=== PATIENT | male | born 1945 | race Caucasian/White ===

== ENCOUNTER 2018-06-27 09:39 | Emergency (ER) | payer MEDICARE, BC ==
[~2018-06-27] VITALS: Ht 175.3 cm; Wt 160.0 kg
[~2018-06-27 09:39] MED LIST: ACET-1995 PO; ALB0.5UD IH; BUDE10.23 IH; FAMO-128 PO; FOLI1TAB16 PO; FORM12CA IH; GLYB2.5T59 PO; LISI40TA4 PO; MILK200C4 PO; MOME0.246 INH; MULT1TAB PO; OSTEO BI-FLEX1 EACH PO; PRED10TA23 PO; THI100T PO; TIOT18CA7 IH; VERA180T PO
[2018-06-27 10:01] LABS: BASOPHILS # (AUTO) 0.1 X10'3 (0-0.2); BASOPHILS % (AUTO) 1.3 % (0-1); EOSINOPHILS # (AUTO) 0.6 X10'3 (0-0.9); EOSINOPHILS % (AUTO) 7.6 % (0-6); HEMATOCRIT 45.7 % (42.0-52.0); LYMPHOCYTES # (AUTO) 1.9 X10'3 (1.1-4.8); LYMPHOCYTES % (AUTO) 24.6 % (21-51); MEAN CORPUSCULAR HEMOGLOBIN 33.6 PG (27.0-31.0); MEAN CORPUSCULAR HGB CONC 34.9 % (33.0-36.5); MEAN CORPUSCULAR VOLUME 96.1 FL (78-98); MEAN PLATELET VOLUME 9.1 FL (7.4-10.4); MONOCYTES # (AUTO) 0.6 X10'3 (0-0.9); MONOCYTES % (AUTO) 7.9 % (2-12); NEUTROPHILS # (AUTO) 4.6 X10'3 (1.8-7.7); NEUTROPHILS % (AUTO) 58.6 % (42-75); PLATELET COUNT 143 X10'3 (140-440); RED BLOOD COUNT 4.76 X10'6 (4.70-6.10); RED CELL DISTRIBUTION WIDTH 13.6 % (11.5-14.5); WHITE BLOOD COUNT 7.8 X10'3 (4.5-11.0)
[2018-06-27 10:11] LABS: INR 1.1 INR; PARTIAL THROMBOPLASTIN TIME 29 SECONDS (22-32); PROTHROMBIN TIME 11.2 SECONDS (9.0-12.0)
[2018-06-27 10:15] LABS: ALANINE AMINOTRANSFERASE 25 U/L (12-78); ALBUMIN 3.2 G/DL (3.4-5.0); ALBUMIN/GLOBULIN RATIO 0.9 (1.1-1.5); ALKALINE PHOSPHATASE 96 IU/L (46-116); ANION GAP 11 (8-16); ASPARTATE AMINO TRANSFERASE 30 U/L (10-37); BILIRUBIN,TOTAL 1.4 MG/DL (0.1-1.0); BLOOD UREA NITROGEN 8 MG/DL (7-18); CALCIUM 8.8 MG/DL (8.5-10.1); CHLORIDE 107 MMOL/L (99-107); GLUCOSE 98 MG/DL (70-104); POTASSIUM 3.8 MMOL/L (3.5-5.1); SODIUM 142 MMOL/L (135-145); TOTAL CARBON DIOXIDE 24.1 MMOL/L (24-32); TOTAL PROTEIN 6.8 G/DL (6.4-8.2); eGFR > 90 ML/MIN
[2018-06-27] MEDS ORDERED: ipratropium/albuterol 3ml nebule NEB ONE ×2 (10:15→11:35)
[2018-06-27 10:37] LABS: MAGNESIUM 1.6 MG/DL (1.5-2.4)
[2018-06-27 12:53] LABS: CLARITY,URINE CLOUDY (Clear); COLOR,URINE YELLOW (Yellow); GLUCOSE, URINE NEGATIVE (Neg); KETONES,URINE 40 mg/dl (Neg); LEUKOCYTE ESTERASE ,URINE MODERATE (Neg); NITRITES, URINE NEGATIVE (Neg); OCCULT BLOOD,URINE TRACE-INTACT (Neg); PROTEIN,URINE TRACE mg/dl (Neg); UROBILINOGEN,URINE 0.2 E.U/dL (0.2-1.0)
[2018-06-27 12:56] LABS: UA COLLECTION TYPE URINAL
[2018-06-27 13:08] LABS: BACTERIA,URINE FEW /HPF (Neg); MUCUS STRANDS MANY /LPF (Neg); RBC,URINE 0-2 /HPF (0-2); SQUAMOUS EPITHELIAL CELL,UR MANY /LPF (FEW); WBC CLUMPS,URINE FEW /HPF (NEGATIVE); WBC,URINE 20-30 /HPF (0-4)
[2018-06-27] MEDS ORDERED: THI100T PO (13:45)
[2018-06-27] MEDS ORDERED: ALBU18HF2 INH (13:45)
[2018-06-27] MEDS ORDERED: AZIT250T83 PO (13:45)
[2018-06-27] MEDS ORDERED: PRED50TA PO (13:45)
[2018-06-27 13:58] VITALS: BP 168/92
== END 2018-06-27 14:00 | disposition home or self-care (01) ==
LOC: ER 09:39
DX: J44.1 Chronic obstructive pulmonary disease with (acute) exacerbation (principal); R07.89 Other chest pain; R42 Dizziness and giddiness; R06.02 Shortness of breath; R60.0 Localized edema; I10 Essential (primary) hypertension; I25.2 Old myocardial infarction; E11.9 Type 2 diabetes mellitus without complications; Z98.890 Other specified postprocedural states; Z79.899 Other long term (current) drug therapy
CPT/HCPCS: 36415; 71045; 80053; 81001; 83735; 83880; 84443; 84484; 85025; 85610; 85730; 93005; 93971; 94640; 94760; 99285

== ENCOUNTER 2018-12-21 05:30 | Emergency (ER) | payer MEDICARE, BC, OTHER ==
[~2018-12-21] VITALS: Ht 182.9 cm; Wt 100.9 kg
[~2018-12-21 05:30] MED LIST changes: +ALBU18HF2 INH; +PRED50TA PO
[2018-12-21] MEDS ORDERED: predniSONE 20 mg tablet PO ONE (05:55)
[2018-12-21] MEDS ORDERED: ipratropium/albuterol 3ml nebule NEB ONE ×2 (05:55→07:55)
[2018-12-21 06:16] LABS: BASOPHILS # (AUTO) 0.1 X10'3 (0-0.2); BASOPHILS % (AUTO) 1.2 % (0-1); EOSINOPHILS # (AUTO) 0.7 X10'3 (0-0.9); EOSINOPHILS % (AUTO) 12.5 % (0-6); HEMATOCRIT 44.8 % (42.0-52.0); HEMOGLOBIN 14.8 g/dl (14.0-17.9); LYMPHOCYTES # (AUTO) 1.9 X10'3 (1.1-4.8); LYMPHOCYTES % (AUTO) 31.3 % (21-51); MEAN CORPUSCULAR HEMOGLOBIN 32.1 PG (27.0-31.0); MEAN CORPUSCULAR VOLUME 97.3 FL (78-98); MEAN PLATELET VOLUME 9.1 FL (7.4-10.4); MONOCYTES # (AUTO) 0.5 X10'3 (0-0.9); MONOCYTES % (AUTO) 7.8 % (2-12); NEUTROPHILS # (AUTO) 2.7 X10'3 (1.8-7.7); NEUTROPHILS % (AUTO) 47.2 % (42-75); PLATELET COUNT 146 X10'3 (140-440); RED BLOOD COUNT 4.61 X10'6 (4.70-6.10); WHITE BLOOD COUNT 5.9 X10'3 (4.5-11.0)
[2018-12-21 06:36] LABS: INR 1.1 INR; PARTIAL THROMBOPLASTIN TIME 30 SECONDS (22-32); PROTHROMBIN TIME 10.9 SECONDS (9.0-12.0)
[2018-12-21 06:39] LABS: ALANINE AMINOTRANSFERASE 32 U/L (12-78); ALBUMIN 3.3 G/DL (3.4-5.0); ALBUMIN/GLOBULIN RATIO 0.9 (1.1-1.5); ALKALINE PHOSPHATASE 82 IU/L (46-116); ANION GAP 11 (8-16); ASPARTATE AMINO TRANSFERASE 29 U/L (10-37); BLOOD UREA NITROGEN 11 MG/DL (7-18); BUN/CREATININE RATIO 11.7 (5.4-32.0); CALCIUM 8.7 MG/DL (8.5-10.1); CHLORIDE 106 MMOL/L (99-107); CREATININE 0.94 MG/DL (0.60-1.10); GLUCOSE 127 MG/DL (70-104); POTASSIUM 3.8 MMOL/L (3.5-5.1); SODIUM 143 MMOL/L (135-145); TOTAL CARBON DIOXIDE 26.2 MMOL/L (24-32); TOTAL PROTEIN 6.8 G/DL (6.4-8.2); eGFR 78 ML/MIN
[2018-12-21 06:47] LABS: MAGNESIUM 1.6 MG/DL (1.5-2.4)
[2018-12-21] MEDS ORDERED: PRED20TA PO (08:12)
[2018-12-21] MEDS ORDERED: ALBU8HFA PO (08:12)
[2018-12-21] MEDS ORDERED: ALB0.5UD IH (08:12)
[2018-12-21 08:31] VITALS: BP 151/73
== END 2018-12-21 08:36 | disposition home or self-care (01) ==
LOC: ER 05:30
DX: J44.1 Chronic obstructive pulmonary disease with (acute) exacerbation (principal); I10 Essential (primary) hypertension; I25.2 Old myocardial infarction; E11.9 Type 2 diabetes mellitus without complications; Z88.8 Allergy status to other drugs, medicaments and biological substances; Z79.899 Other long term (current) drug therapy
CPT/HCPCS: 36415; 71045; 80053; 83605; 83735; 83880; 84484; 85025; 85610; 85730; 87040; 93005; 94640; 94760; 99284; J7512

== ENCOUNTER 2019-07-13 21:07 | Inpatient (IN) | payer MEDICARE, BC ==
[~2019-07-13] VITALS: Ht 182.9 cm; Wt 120.5 kg
[2019-07-13 23:42] LABS: BASOPHILS # (AUTO) 0.2 X10'3 (0-0.2); BASOPHILS % (AUTO) 1.6 % (0-1); EOSINOPHILS # (AUTO) 0.3 X10'3 (0-0.9); EOSINOPHILS % (AUTO) 2.7 % (0-6); HEMATOCRIT 40.8 % (42.0-52.0); HEMOGLOBIN 14.2 g/dl (14.0-17.9); LYMPHOCYTES # (AUTO) 0.9 X10'3 (1.1-4.8); LYMPHOCYTES % (AUTO) 8.8 % (21-51); MEAN CORPUSCULAR HEMOGLOBIN 33.2 PG (27.0-31.0); MEAN CORPUSCULAR HGB CONC 34.7 g/dL (33.0-36.5); MEAN CORPUSCULAR VOLUME 95.8 FL (78-98); MEAN PLATELET VOLUME 8.4 FL (7.4-10.4); MONOCYTES # (AUTO) 0.9 X10'3 (0-0.9); MONOCYTES % (AUTO) 8.1 % (2-12); NEUTROPHILS # (AUTO) 8.3 X10'3 (1.8-7.7); NEUTROPHILS % (AUTO) 78.8 % (42-75); PLATELET COUNT 215 X10'3 (140-440); RED BLOOD COUNT 4.26 X10'6 (4.70-6.10); RED CELL DISTRIBUTION WIDTH 13.1 % (11.5-14.5); WHITE BLOOD COUNT 10.6 X10'3 (4.5-11.0)
[2019-07-13 23:49] LABS: ALANINE AMINOTRANSFERASE 29 U/L (12-78); ALBUMIN 2.4 G/DL (3.4-5.0); ALBUMIN/GLOBULIN RATIO 0.5 (1.1-1.5); ALKALINE PHOSPHATASE 72 IU/L (46-116); ANION GAP 9 (8-16); ASPARTATE AMINO TRANSFERASE 36 U/L (10-37); BILIRUBIN,TOTAL 0.7 MG/DL (0.1-1.0); BLOOD UREA NITROGEN 14 MG/DL (7-18); BUN/CREATININE RATIO 11.6 (5.4-32.0); CALCIUM 8.2 MG/DL (8.5-10.1); CHLORIDE 98 MMOL/L (99-107); CREATININE 1.21 MG/DL (0.60-1.10); GLUCOSE 85 MG/DL (70-104); MAGNESIUM 1.7 MG/DL (1.5-2.4); SODIUM 133 MMOL/L (135-145); TOTAL CARBON DIOXIDE 26.2 MMOL/L (24-32); TOTAL PROTEIN 7.6 G/DL (6.4-8.2); eGFR 58 ML/MIN
[2019-07-13] MEDS ORDERED: ipratropium/albuterol 3ml nebule NEB ONE (23:50)
[2019-07-13] MEDS ORDERED: CefTRIAXone 2gm/D5W 50ml 50 ML IV ONE (23:50)
[2019-07-13 23:51] LABS: POTASSIUM 3.5 MMOL/L (3.5-5.1)
[2019-07-13 23:55] LABS: CLARITY,URINE CLOUDY (Clear); COLOR,URINE YELLOW (Yellow); GLUCOSE, URINE NEGATIVE (Neg); KETONES,URINE NEGATIVE (Neg); LEUKOCYTE ESTERASE ,URINE LARGE (Neg); NITRITES, URINE POSITIVE (Neg); OCCULT BLOOD,URINE MODERATE (Neg); PROTEIN,URINE 100 mg/dl (Neg); UROBILINOGEN,URINE 0.2 E.U/dL (0.2-1.0)
--- NOTE | 2019-07-14 00:06 | NUR ---
DR CABRAL UPDATED THAT PT STRAIGHT CATHED AND 650 OF DARK CLOUDY URINE OUT. LABS DRAWN. PT REQUESTING SVN TREATMENT. REPROTS HE DOES THEM REGULARLY AT HOME.
[2019-07-14 00:13] LABS: UA COLLECTION TYPE STRAIGHT CATH
[2019-07-14 00:16] LABS: BACTERIA,URINE 2+ /HPF (Neg); MUCUS STRANDS NONE SEEN /LPF (Neg); SQUAMOUS EPITHELIAL CELL,UR FEW /LPF (FEW); WBC,URINE TNTC /HPF (0-4)
[2019-07-14] MEDS ORDERED: mag hydrox/Alum hydrox/simeth 30ml oral suspension PO PRN (00:40)
[2019-07-14] MEDS ORDERED: potassium Cl 20 mEq SR tablet PO PRN (00:40)
[2019-07-14] MEDS ORDERED: normal saline 1000ml 1,000 ML IV ONE (00:40)
[2019-07-14] MEDS ORDERED: magnesium Cl slow-release 64mg tablet PO PRN (00:40)
[2019-07-14] MEDS ORDERED: ondansetron/PF 4mg/2ml inj IV PRN (00:40)
[2019-07-14] MEDS ORDERED: acetaminophen 325mg tablet PO PRN ×2 (00:40)
[2019-07-14] MEDS ORDERED: magnesium 4gm in 100ml NS 100 ML IV PRN (00:40)
[2019-07-14] MEDS ORDERED: potassium CL 10mEq/100ml bag 100 ML IV PRN ×2 (00:40)
[2019-07-14] MEDS ORDERED: magnesium 2GM in 50ml NS 50 ML IV PRN (00:40)
--- NOTE | 2019-07-14 00:44 | NUR ---
PT TO BE ADMITTED, AWAITING HOSPITALIST.
[2019-07-14 01:04] LABS: PLATELET ESTIMATE NORMAL; TOTAL CELLS COUNTED 100
--- NOTE | 2019-07-14 01:39 | NUR ---
dr aviles at bedside . pt with room assignment
[2019-07-14] MEDS ORDERED: acetaminophen 325mg tablet PO ONE (01:45)
--- NOTE | 2019-07-14 02:35 | NUR ---
Patient in room [facility]. I have received report from Aneta Tse Rn and had the opportunity to ask questions and will assume patient care upon arrival to room 359b..
[2019-07-14 02:45] VITALS: BP 145/55
--- NOTE | 2019-07-14 02:45 | NUR ---
pt arrived to the floor and transferred into bed. 3 people to take pictures do skin care and wound care on the pt. MRSA swab done. see pictures in the chart. scabs from fall at home on daughters porch unwitnessed pictured and dressed with Optifoam, bilat knees covered with island dressing and buttox x2 covered with Optifoam after cleaning. groin and panus with Calazime cream and will call Md regarding yeasty component to the rash. bilat legs with wounds red warm swollen with sores Xeroform gauze allied then wrapped with Kerlix and bernardo wrap bilat.
[2019-07-14] MEDS ORDERED: glucagon, human recombinant 1mg kit SUBCUT PRN ×2 (03:05→04:30)
[2019-07-14] MEDS ORDERED: MESSAGE TO PHARMACY PO ONE ×2 (03:05→04:30)
[2019-07-14] MEDS ORDERED: dextrose 50%-water 50ml dispensing syringe IV PRN ×4 (03:05→04:30)
[2019-07-14] MEDS ORDERED: dextrose ORAL solution 15 GM/59 ML bottle PO PRN ×4 (03:05→04:30)
[2019-07-14] MEDS ORDERED: insulin Lispro (HumaLOG) vial - multi-dose SQ SCH (04:30)
--- NOTE | 2019-07-14 04:42 | NUR ---
call to Dr Elizalde regarding pain medication, granulation to eyes after cleaning x3 with saline and warm wash cloth and pt states eyes feel gritty and tissue around eyes red with exudate prior to cleaning thick, wounds to legs swelling and redness, scabs puictures of wounds to very red excoriated yeasty looking groin , pannus, that pt history is wrong regarding afib, cagb pt has not has, and he says he has not had an Mi. pt is morbidly obese and weak. pt ordered as pt fell at home. also pt diabetic. orders recived and said he'd put orders in for pt's hypertension.
[2019-07-14] MEDS: ipratropium/albuterol 3ml nebule NEB PRN ×2 (04:51→23:54)
[2019-07-14] MEDS ORDERED: tamsulosin 0.4mg capsule PO ONE (05:00)
--- NOTE | 2019-07-14 05:00 | NUR ---
another call to Dr Valdez. pt states he can't pee bladder scan showed 550cc urine. Tamica Solano inserted a 16Fr patel via sterile procedure aware pt is allergic to iodine. patel inserted by protocol and tolerated well.
[2019-07-14 06:16] LABS: ALBUMIN 2.1 G/DL (3.4-5.0); ANION GAP 11 (8-16); BLOOD UREA NITROGEN 16 MG/DL (7-18); CHLORIDE 100 MMOL/L (99-107); CREATININE 1.14 MG/DL (0.60-1.10); GLUCOSE 93 MG/DL (70-104); POTASSIUM 3.2 MMOL/L (3.5-5.1); SODIUM 135 MMOL/L (135-145); TOTAL CARBON DIOXIDE 23.9 MMOL/L (24-32); eGFR 62 ML/MIN
--- NOTE | 2019-07-14 06:28 | NUR ---
Problems reprioritized. Patient report given, questions answered & plan of care reviewed with Cristiane Solano & Melba SOLANO. Addendum: 07/14/19 at 0631 by Jesi Beckwith RN Amended: Links added.
--- NOTE | 2019-07-14 06:30 | NUR ---
Problems reprioritized. Patient report given, questions answered & plan of care reviewed with LOURDES Pablo. Addendum: 07/15/19 at 0656 by Jose Clements RN Problems reprioritized. Patient report given, questions answered & plan of care reviewed with LOURDES Pablo. Addendum: 07/15/19 at 0657 by Jose Clements RN wrong time. disregard note
--- NOTE | 2019-07-14 07:00 | NUR ---
Patient in room [facility]. I have received report from Parris Cardona RN and had the opportunity to ask questions and assume patient care.
[2019-07-14 07:09] VITALS: BP 166/54
[2019-07-14] MEDS: ipratropium/albuterol 3ml nebule NEB SCH ×3 (07:20→20:14)
[2019-07-14 07:21] LABS: HEMOGLOBIN A1C 6.1 % (4.5-6.2)
[2019-07-14] MEDS: budesonide 0.5mg/2ml UD nebule IH SCH ×2 (07:21→20:14)
[2019-07-14] MEDS ORDERED: amLODIPine 5mg tablet PO SCH (08:00)
[2019-07-14] MEDS: K and/or MAG REPLACEMENT MC SCH (08:00)
[2019-07-14] MEDS: potassium Cl 20 mEq SR tablet PO PRN ×3 (08:57→21:36)
[2019-07-14] MEDS: HYDROcodone/acetaminophen 5mg/325mg tablet PO PRN (08:58)
[2019-07-14] MEDS: ciprofloxacin 0.3% 2.5ml ophthalmic solution EACHEYE SCH ×4 (08:59→19:28)
[2019-07-14] MEDS: nystatin 15 GM ointment TP SCH ×3 (08:59→21:37)
[2019-07-14] MEDS: enoxaparin 40mg/0.4ml syringe SQ SCH (09:00)
[2019-07-14] MEDS ORDERED: pneumococcal 23-VAL P-sac vacc 25 mcg/0.5ml vial IMVAC ONE (10:00)
[2019-07-14] MEDS ORDERED: FURO-150 PO (10:33)
[2019-07-14] MEDS ORDERED: ALBU8.5H8 INH (10:37)
[2019-07-14] MEDS ORDERED: GLYB5TAB7 PO (10:41)
[2019-07-14] MEDS ORDERED: amLODIPine 5mg tablet PO ONE (11:35)
[2019-07-14 12:14] VITALS: BP 163/73
--- NOTE | 2019-07-14 12:36 | NUR ---
Wound consult received. Noted patient has excoriated and reddened scrotum, left right buttock, and abrasion to left right upper lower knee. Has BLE 2+ pitting edema. No nutrition intervention needed at this time. Addendum: 07/14/19 at [address] Amended: Links added.
[2019-07-14 18:00] VITALS: BP 118/67
--- NOTE | 2019-07-14 18:30 | NUR ---
Patient in room [facility]. I have received report from LOURDES Reilly and had the opportunity to ask questions and assume patient care.
--- NOTE | 2019-07-14 18:35 | NUR ---
Problems reprioritized. Patient report given, questions answered & plan of care reviewed with Elias FREED.
[2019-07-14] MEDS: lactobacillus rhamnosus 10,000 MMU CELLS/CAPSULE PO SCH (19:29)
[2019-07-14] MEDS: insulin glargine (Lantus) pen - multi-dose SQ SCH (21:00)
[2019-07-14] MEDS ORDERED: insulin glargine (Lantus) pen - multi-dose SQ SCH (21:00)
[2019-07-14] MEDS: magnesium hydroxide 30ml (MOM) UD suspension PO PRN (21:36)
[2019-07-14] MEDS: hydrALAZINE 20mg/ml inj. IV PRN (22:32)
[2019-07-14 23:47] VITALS: BP 176/68
[2019-07-15] MEDS: ciprofloxacin 0.3% 2.5ml ophthalmic solution EACHEYE SCH ×6 (00:23→21:51)
[2019-07-15] MEDS: CefTRIAXone 2gm/D5W 50ml 50 ML IV SCH ×2 (00:23→23:20)
[2019-07-15] MEDS: HYDROcodone/acetaminophen 5mg/325mg tablet PO PRN ×2 (01:16→07:32)
[2019-07-15 05:26] LABS: ALBUMIN 2.1 G/DL (3.4-5.0); ANION GAP 11 (8-16); BASOPHILS % (AUTO) 0.4 % (0-1); BLOOD UREA NITROGEN 11 MG/DL (7-18); BUN/CREATININE RATIO 10.9 (5.4-32.0); CALCIUM 8.1 MG/DL (8.5-10.1); CHLORIDE 100 MMOL/L (99-107); CREATININE 1.01 MG/DL (0.60-1.10); EOSINOPHILS # (AUTO) 0.3 X10'3 (0-0.9); EOSINOPHILS % (AUTO) 2.8 % (0-6); GLUCOSE 121 MG/DL (70-104); HEMATOCRIT 41.2 % (42.0-52.0); HEMOGLOBIN 14.2 g/dl (14.0-17.9); LYMPHOCYTES # (AUTO) 1.1 X10'3 (1.1-4.8); LYMPHOCYTES % (AUTO) 11.7 % (21-51); MAGNESIUM 1.8 MG/DL (1.5-2.4); MEAN CORPUSCULAR HEMOGLOBIN 33.1 PG (27.0-31.0); MEAN CORPUSCULAR HGB CONC 34.6 g/dL (33.0-36.5); MEAN CORPUSCULAR VOLUME 95.7 FL (78-98); MEAN PLATELET VOLUME 8.6 FL (7.4-10.4); MONOCYTES # (AUTO) 0.9 X10'3 (0-0.9); MONOCYTES % (AUTO) 9.3 % (2-12); NEUTROPHILS # (AUTO) 7.3 X10'3 (1.8-7.7); NEUTROPHILS % (AUTO) 75.8 % (42-75); PLATELET COUNT 195 X10'3 (140-440); POTASSIUM 3.8 MMOL/L (3.5-5.1); RED CELL DISTRIBUTION WIDTH 13.4 % (11.5-14.5); SODIUM 134 MMOL/L (135-145); TOTAL CARBON DIOXIDE 22.9 MMOL/L (24-32); WHITE BLOOD COUNT 9.6 X10'3 (4.5-11.0); eGFR 72 ML/MIN
--- NOTE | 2019-07-15 06:50 | NUR ---
Patient in room [facility]. I have received report from LOURDES Roach and had the opportunity to ask questions and assume patient care.
--- NOTE | 2019-07-15 06:57 | NUR ---
Problems reprioritized. Patient report given, questions answered & plan of care reviewed with LOURDES Pablo.
[2019-07-15] MEDS: lactobacillus rhamnosus 10,000 MMU CELLS/CAPSULE PO SCH ×2 (07:27→21:51)
[2019-07-15] MEDS: nystatin 15 GM ointment TP SCH ×3 (07:27→21:51)
[2019-07-15] MEDS: amLODIPine 5mg tablet PO SCH (07:28)
[2019-07-15] MEDS: enoxaparin 40mg/0.4ml syringe SQ SCH (07:29)
[2019-07-15 08:00] VITALS: BP 126/66
[2019-07-15] MEDS: K and/or MAG REPLACEMENT MC SCH (08:00)
[2019-07-15] MEDS: ipratropium/albuterol 3ml nebule NEB SCH ×3 (08:12→21:01)
[2019-07-15] MEDS: budesonide 0.5mg/2ml UD nebule IH SCH ×2 (08:12→21:01)
[2019-07-15 11:00] VITALS: BP 146/64
[2019-07-15] MEDS ORDERED: GLIP5TAB13 PO (13:09)
[2019-07-15] MEDS ORDERED: CETI10TA18 PO (13:09)
[2019-07-15] MEDS ORDERED: FOLI1TAB16 PO (13:11)
[2019-07-15 18:00] VITALS: BP 159/66
--- NOTE | 2019-07-15 18:12 | NUR ---
Patient in room [facility]. I have received report from LOURDES Pablo and had the opportunity to ask questions and assume patient care.
--- NOTE | 2019-07-15 18:13 | NUR ---
Problems reprioritized. Patient report given, questions answered & plan of care reviewed with LOURDES Roach.
[2019-07-15] MEDS: insulin glargine (Lantus) pen - multi-dose SQ SCH (21:00)
[2019-07-15] MEDS: magnesium hydroxide 30ml (MOM) UD suspension PO PRN (21:51)
[2019-07-15] MEDS: tamsulosin 0.4mg capsule PO SCH (21:51)
[2019-07-16] VITALS: BP 165/67
[2019-07-16] MEDS: ciprofloxacin 0.3% 2.5ml ophthalmic solution EACHEYE SCH ×7 (00:50→23:40)
[2019-07-16 05:40] LABS: BASOPHILS % (AUTO) 0.5 % (0-1); EOSINOPHILS # (AUTO) 0.1 X10'3 (0-0.9); EOSINOPHILS % (AUTO) 1.1 % (0-6); HEMATOCRIT 40.2 % (42.0-52.0); HEMOGLOBIN 13.7 g/dl (14.0-17.9); LYMPHOCYTES % (AUTO) 10.5 % (21-51); MEAN CORPUSCULAR HEMOGLOBIN 32.5 PG (27.0-31.0); MEAN CORPUSCULAR HGB CONC 34.2 g/dL (33.0-36.5); MEAN PLATELET VOLUME 8.9 FL (7.4-10.4); MONOCYTES # (AUTO) 0.8 X10'3 (0-0.9); MONOCYTES % (AUTO) 8.1 % (2-12); NEUTROPHILS # (AUTO) 7.9 X10'3 (1.8-7.7); NEUTROPHILS % (AUTO) 79.8 % (42-75); PLATELET COUNT 203 X10'3 (140-440); RED BLOOD COUNT 4.23 X10'6 (4.70-6.10); RED CELL DISTRIBUTION WIDTH 13.2 % (11.5-14.5); WHITE BLOOD COUNT 9.9 X10'3 (4.5-11.0)
[2019-07-16 05:55] LABS: ALBUMIN 1.9 G/DL (3.4-5.0); ANION GAP 10 (8-16); BLOOD UREA NITROGEN 10 MG/DL (7-18); BUN/CREATININE RATIO 10.3 (5.4-32.0); CALCIUM 8.5 MG/DL (8.5-10.1); CHLORIDE 99 MMOL/L (99-107); CREATININE 0.97 MG/DL (0.60-1.10); GLUCOSE 150 MG/DL (70-104); MAGNESIUM 2.1 MG/DL (1.5-2.4); POTASSIUM 3.6 MMOL/L (3.5-5.1); SODIUM 134 MMOL/L (135-145); TOTAL CARBON DIOXIDE 25.2 MMOL/L (24-32); eGFR 75 ML/MIN
--- NOTE | 2019-07-16 06:00 | NUR ---
Patient in room [facility]. I have received report from Doc FREED and had the opportunity to ask questions and assume patient care.
--- NOTE | 2019-07-16 06:46 | NUR ---
Problems reprioritized. Patient report given, questions answered & plan of care reviewed with LOURDES Villagomez.
[2019-07-16 07:21] VITALS: BP 144/54
[2019-07-16] MEDS: K and/or MAG REPLACEMENT MC SCH (07:48)
[2019-07-16] MEDS: lactobacillus rhamnosus 10,000 MMU CELLS/CAPSULE PO SCH ×2 (07:52→19:22)
[2019-07-16] MEDS: enoxaparin 40mg/0.4ml syringe SQ SCH (07:53)
[2019-07-16] MEDS: amLODIPine 5mg tablet PO SCH (07:53)
[2019-07-16] MEDS: nystatin 15 GM ointment TP SCH ×3 (07:53→21:02)
[2019-07-16] MEDS: budesonide 0.5mg/2ml UD nebule IH SCH ×2 (09:22→19:54)
[2019-07-16] MEDS: ipratropium/albuterol 3ml nebule NEB SCH ×3 (09:22→20:00)
[2019-07-16 10:56] VITALS: BP 163/68
[2019-07-16] MEDS: ipratropium/albuterol 3ml nebule NEB PRN (12:41)
[2019-07-16] MEDS ORDERED: non-formulary drug (Albuterol Sulfate Nebs* (Proventil Nebs*) 2.5 MG) IH PRN (16:45)
[2019-07-16] MEDS: levoFLOXACIN-Levaquin 500mg/D5 100 ML IV SCH (16:49)
[2019-07-16] MEDS: furosemide 20MG tablet PO SCH (17:01)
[2019-07-16 18:00] VITALS: BP 178/50
--- NOTE | 2019-07-16 18:20 | NUR ---
Patient in room [facility]. I have received report from LOURDES Villagomez and had the opportunity to ask questions and assume patient care.
--- NOTE | 2019-07-16 18:20 | NUR ---
Problems reprioritized. Patient report given, questions answered & plan of care reviewed with Doc FREED.
[2019-07-16] MEDS: hydrALAZINE 20mg/ml inj. IV PRN (19:23)
[2019-07-16] MEDS: insulin Lispro (HumaLOG) vial - multi-dose SQ SCH (19:29)
[2019-07-16] MEDS: albuterol 2.5 MG/3 ML nebule NEB PRN (19:54)
[2019-07-16] MEDS: ipratropium 0.5 MG/2.5ML nebule IH SCH (20:00)
[2019-07-16] MEDS: tamsulosin 0.4mg capsule PO SCH (21:02)
[2019-07-16] MEDS: magnesium hydroxide 30ml (MOM) UD suspension PO PRN (21:02)
[2019-07-16] MEDS: HYDROcodone/acetaminophen 5mg/325mg tablet PO PRN (21:14)
[2019-07-16] MEDS: insulin glargine (Lantus) pen - multi-dose SQ SCH (22:22)
[2019-07-17 00:35] VITALS: BP 145/64
[2019-07-17] MEDS: ipratropium 0.5 MG/2.5ML nebule IH SCH ×4 (03:05→21:00)
[2019-07-17] MEDS: ciprofloxacin 0.3% 2.5ml ophthalmic solution EACHEYE SCH ×6 (04:36→23:55)
[2019-07-17] MEDS: albuterol 2.5 MG/3 ML nebule NEB PRN (04:46)
[2019-07-17] MEDS: HYDROcodone/acetaminophen 5mg/325mg tablet PO PRN (05:27)
[2019-07-17 06:01] LABS: BASOPHILS # (AUTO) 0.1 X10'3 (0-0.2); BASOPHILS % (AUTO) 0.6 % (0-1); EOSINOPHILS # (AUTO) 0.1 X10'3 (0-0.9); HEMATOCRIT 40.1 % (42.0-52.0); HEMOGLOBIN 13.6 g/dl (14.0-17.9); LYMPHOCYTES # (AUTO) 1.2 X10'3 (1.1-4.8); LYMPHOCYTES % (AUTO) 12.2 % (21-51); MEAN CORPUSCULAR HEMOGLOBIN 32.6 PG (27.0-31.0); MEAN CORPUSCULAR VOLUME 95.9 FL (78-98); MEAN PLATELET VOLUME 8.9 FL (7.4-10.4); MONOCYTES # (AUTO) 0.8 X10'3 (0-0.9); MONOCYTES % (AUTO) 8.3 % (2-12); NEUTROPHILS # (AUTO) 7.8 X10'3 (1.8-7.7); NEUTROPHILS % (AUTO) 77.9 % (42-75); PLATELET COUNT 215 X10'3 (140-440); RED BLOOD COUNT 4.18 X10'6 (4.70-6.10); RED CELL DISTRIBUTION WIDTH 13.6 % (11.5-14.5)
--- NOTE | 2019-07-17 06:11 | NUR ---
Problems reprioritized. Patient report given, questions answered & plan of care reviewed with LOURDES Villagomez.
[2019-07-17 06:23] LABS: ALBUMIN 1.7 G/DL (3.4-5.0); ANION GAP 9 (8-16); BLOOD UREA NITROGEN 14 MG/DL (7-18); BUN/CREATININE RATIO 13.7 (5.4-32.0); CALCIUM 8.6 MG/DL (8.5-10.1); CHLORIDE 99 MMOL/L (99-107); CREATININE 1.02 MG/DL (0.60-1.10); GLUCOSE 163 MG/DL (70-104); MAGNESIUM 2.1 MG/DL (1.5-2.4); POTASSIUM 3.5 MMOL/L (3.5-5.1); SODIUM 134 MMOL/L (135-145); TOTAL CARBON DIOXIDE 25.6 MMOL/L (24-32); eGFR 71 ML/MIN
--- NOTE | 2019-07-17 06:48 | NUR ---
Patient in room [facility]. I have received report from Doc FREED and had the opportunity to ask questions and assume patient care.
[2019-07-17 06:57] VITALS: BP 155/67
[2019-07-17] MEDS: K and/or MAG REPLACEMENT MC SCH (08:00)
[2019-07-17] MEDS ORDERED: non-formulary drug (Tiotropium Bromide* (Spiriva*) 18 MCG) IH SCH (08:00)
[2019-07-17] MEDS: nystatin 15 GM ointment TP SCH ×3 (08:26→20:47)
[2019-07-17] MEDS: amLODIPine 5mg tablet PO SCH (08:26)
[2019-07-17] MEDS: lactobacillus rhamnosus 10,000 MMU CELLS/CAPSULE PO SCH ×2 (08:26→20:47)
[2019-07-17] MEDS: furosemide 20MG tablet PO SCH (08:26)
[2019-07-17] MEDS: enoxaparin 40mg/0.4ml syringe SQ SCH (08:27)
[2019-07-17] MEDS: levoFLOXACIN-Levaquin 500mg/D5 100 ML IV SCH (08:27)
[2019-07-17] MEDS: verapamil SR 180mg tablet PO SCH (08:27)
[2019-07-17] MEDS: budesonide 0.5mg/2ml UD nebule IH SCH ×2 (08:37→21:28)
[2019-07-17] MEDS: ipratropium/albuterol 3ml nebule NEB SCH ×3 (08:37→21:28)
[2019-07-17] MEDS: insulin Lispro (HumaLOG) vial - multi-dose SQ SCH ×2 (09:56→13:48)
--- NOTE | 2019-07-17 10:35 | NUR ---
Informed Dr. Hernandez at pts bedside of right hand/wrist swelling and tender to touch. MD order xrays and vascular ultrasound. Also informed MD of pt has no appetite and periods of confusion. PT at bedside also and informed MD that pt has declined with mobility since admitted. No other new orders at this time.
[2019-07-17 12:07] VITALS: BP 135/61
--- NOTE | 2019-07-17 15:57 | NUR ---
PT informed primary nurse that pt is leaning to the left and it is hard for pt to move right arm and are concerned, Dr. Hernandez informed of this information and MD to input orders.
[2019-07-17 18:00] VITALS: BP 177/74
--- NOTE | 2019-07-17 18:15 | NUR ---
Patient in room [facility]. I have received report from Dahlia FREED and had the opportunity to ask questions and assume patient care.
--- NOTE | 2019-07-17 18:29 | NUR ---
Problems reprioritized. Patient report given, questions answered & plan of care reviewed with Vanessa FREED.
[2019-07-17 19:40] VITALS: BP 154/78
--- NOTE | 2019-07-17 20:05 | NUR ---
pt down to CT
[2019-07-17] MEDS: tamsulosin 0.4mg capsule PO SCH (20:47)
[2019-07-17] MEDS: insulin glargine (Lantus) pen - multi-dose SQ SCH (20:54)
[2019-07-18] VITALS: BP 167/90
--- NOTE | 2019-07-18 00:45 | NUR ---
pt c/o shortness of breath. paged RT will continue to monitor.
[2019-07-18] MEDS: albuterol 2.5 MG/3 ML nebule NEB PRN (00:54)
--- NOTE | 2019-07-18 01:55 | NUR ---
pt still filling a little anxious and SOB. pt states he "feels low" and checked his blood sugar which was in the 170s. Oxygen saturations are 89%. pt states he is hot. pulled off his blankets and turned down the temperature in the room. pt wants to get up to the chair but sat his bed up all the way instead and floated his heels. pt said he "wanted to go home" and "when the f it was going to happen" explained to the pt about his situations and that it is the middle of the night. once pt was reoriented to the situation he seems to relax a little. pt now has his eyes closed. will continue to monitor
[2019-07-18] MEDS: ipratropium 0.5 MG/2.5ML nebule IH SCH ×3 (03:29→19:53)
[2019-07-18] MEDS: ciprofloxacin 0.3% 2.5ml ophthalmic solution EACHEYE SCH ×6 (03:33→23:36)
[2019-07-18 04:04] LABS: BASOPHILS % (AUTO) 0.5 % (0-1); EOSINOPHILS # (AUTO) 0.2 X10'3 (0-0.9); EOSINOPHILS % (AUTO) 2.4 % (0-6); HEMATOCRIT 38.7 % (42.0-52.0); HEMOGLOBIN 13.4 g/dl (14.0-17.9); LYMPHOCYTES # (AUTO) 1.1 X10'3 (1.1-4.8); LYMPHOCYTES % (AUTO) 10.9 % (21-51); MEAN CORPUSCULAR HGB CONC 34.6 g/dL (33.0-36.5); MEAN CORPUSCULAR VOLUME 95.4 FL (78-98); MEAN PLATELET VOLUME 8.9 FL (7.4-10.4); MONOCYTES # (AUTO) 0.9 X10'3 (0-0.9); MONOCYTES % (AUTO) 8.3 % (2-12); NEUTROPHILS # (AUTO) 8.1 X10'3 (1.8-7.7); NEUTROPHILS % (AUTO) 77.9 % (42-75); PLATELET COUNT 228 X10'3 (140-440); RED BLOOD COUNT 4.06 X10'6 (4.70-6.10); RED CELL DISTRIBUTION WIDTH 13.6 % (11.5-14.5); WHITE BLOOD COUNT 10.4 X10'3 (4.5-11.0)
[2019-07-18 04:16] LABS: ALBUMIN 1.6 G/DL (3.4-5.0); ANION GAP 9 (8-16); BLOOD UREA NITROGEN 18 MG/DL (7-18); BUN/CREATININE RATIO 18.6 (5.4-32.0); CALCIUM 8.3 MG/DL (8.5-10.1); CHLORIDE 97 MMOL/L (99-107); CREATININE 0.97 MG/DL (0.60-1.10); GLUCOSE 163 MG/DL (70-104); MAGNESIUM 2.1 MG/DL (1.5-2.4); POTASSIUM 3.7 MMOL/L (3.5-5.1); SODIUM 132 MMOL/L (135-145); TOTAL CARBON DIOXIDE 26.3 MMOL/L (24-32); eGFR 75 ML/MIN
--- NOTE | 2019-07-18 06:11 | NUR ---
Problems reprioritized. Patient report given, questions answered & plan of care reviewed with Yelena FREED. FC and IV intact. no signs of distress. call light and frq used belongings within reach.
[2019-07-18 07:00] VITALS: BP 154/82
--- NOTE | 2019-07-18 07:00 | NUR ---
Notified RT for respiratory treatments.
[2019-07-18] MEDS: K and/or MAG REPLACEMENT MC SCH (08:00)
[2019-07-18] MEDS: levoFLOXACIN-Levaquin 500mg/D5 100 ML IV SCH (08:08)
[2019-07-18] MEDS: furosemide 20MG tablet PO SCH (08:08)
[2019-07-18] MEDS: lactobacillus rhamnosus 10,000 MMU CELLS/CAPSULE PO SCH ×2 (08:09→20:12)
[2019-07-18] MEDS: amLODIPine 5mg tablet PO SCH (08:09)
[2019-07-18] MEDS: enoxaparin 40mg/0.4ml syringe SQ SCH (08:09)
[2019-07-18] MEDS: verapamil SR 180mg tablet PO SCH (08:10)
[2019-07-18] MEDS: nystatin 15 GM ointment TP SCH ×3 (08:11→20:12)
[2019-07-18] MEDS: HYDROcodone/acetaminophen 5mg/325mg tablet PO PRN (08:25)
[2019-07-18] MEDS: insulin Lispro (HumaLOG) vial - multi-dose SQ SCH ×3 (09:01→19:06)
[2019-07-18] MEDS: budesonide 0.5mg/2ml UD nebule IH SCH ×2 (09:05→19:53)
[2019-07-18] MEDS: ipratropium/albuterol 3ml nebule NEB SCH ×3 (09:05→19:53)
[2019-07-18 12:38] VITALS: BP 152/72
--- NOTE | 2019-07-18 12:55 | NUR ---
MD IRMA EUGENE. DISCUSSED PT.'S DECLINING CONDITION WITH MD- WHEERANDY LS THROUGHOUT, ABD. DISTENTION WITH PAIN, AND INCREASED GENERALIZED EDEMA. KUB, CXR, AND ABGS ORDERED.
--- NOTE | 2019-07-18 13:31 | NUR ---
Pt. off floor in radiology.
[2019-07-18] MEDS ORDERED: bisacodyl 10mg suppository rectal RC STA (14:46)
[2019-07-18] MEDS: lisinopril 5mg tablet PO SCH (16:09)
[2019-07-18 16:41] LABS: ABG BASE EXCESS 2.3 mmol/L (-2.0-3.0); ABG HCO3 25.9 mmol/L (22.0-26.0); ABG OXYGEN SATURATION 85.7 % (95-98); ABG PCO2 (T) 37.1 mmHg (35.0-45.0); ABG PH (T) 7.462 (7.350-7.450); ABG PO2 (T) 49.5 mmHg (83-108); ALLEN'S TEST Positive; FCOHb 0.3 % (0.5-1.5); FMetHb 0.2 % (0.3-1.12); FO2Hb 85.3 % (94-100); TOTAL HEMOGLOBIN 14.1 G/dl (14.0-17.9)
--- NOTE | 2019-07-18 17:09 | NUR ---
PT. ABGS CAME BACK WITH CRITICAL LOW VENOUS 02. MD SOLIS MADE AWARE. RT AWARE. PLACED PT. ON HIGH FLOW 02 VIA VENTURI MASK. LASIX 40 MG IV ORDERED. ABG RE EVAL IN AM. CPAP PRN ORDERED.
[2019-07-18] MEDS ORDERED: furosemide 10 MG/1 ML 10ml inj IV ONE (17:15)
[2019-07-18 17:30] VITALS: BP 130/64
[2019-07-18] MEDS ORDERED: magnesium Cl slow-release 64mg tablet PO PRN (17:45)
[2019-07-18] MEDS ORDERED: potassium Cl 20 mEq SR tablet PO PRN (17:45)
[2019-07-18] MEDS ORDERED: magnesium 4gm in 100ml NS 100 ML IV PRN (17:45)
[2019-07-18] MEDS ORDERED: potassium CL 10mEq/100ml bag 100 ML IV PRN (17:45)
[2019-07-18 18:00] VITALS: BP 120/50
--- NOTE | 2019-07-18 18:30 | NUR ---
Patient in room [facility]. I have received report from Yelena FREED and had the opportunity to ask questions and assume patient care.
--- NOTE | 2019-07-18 18:55 | NUR ---
Lasix ASSESSMENT for ONCE ONLY dose of IV LASIX 80 mg states to start potassium replacement if current potassium lab below 4.0. Comment below order states to only start replacement if potassium below 3.5. Clarified with MD. Ok to wait until AM labs drawn in AM and start replacing at 3.5.
[2019-07-18] MEDS: piperacillin/tazo 3.375gm/50ml 50 ML IV SCH ×2 (18:58→23:36)
--- NOTE | 2019-07-18 19:58 | NUR ---
PT. IN ROOM, RISE AND FALL OF CHEST, PULSE OXIMETRY ON PT AND SA02 STABLE, 02 AT 3LPM VIA N/C. PT RECENTLY REPOSITIONED WITH RA ELEVATED AND HEELS FLOATED. VANCO STILL BEING ADMINISTERED PER ORDER, ONCOMING NURSE AWARE THAT ZOSYN 1600 DOSE HAS NOT BEEN ADMINISTERED AT THIS TIME. Problems reprioritized. Patient report given, questions answered & plan of care reviewed with JHONY FREED.
[2019-07-18] MEDS: furosemide 40mg/4ml inj IV SCH (20:12)
[2019-07-18] MEDS: tamsulosin 0.4mg capsule PO SCH (20:12)
[2019-07-18] MEDS: insulin glargine (Lantus) pen - multi-dose SQ SCH (21:19)
[2019-07-19] VITALS: BP 141/61
[2019-07-19] MEDS: HYDROcodone/acetaminophen 5mg/325mg tablet PO PRN ×2 (01:42→21:53)
[2019-07-19] MEDS: ipratropium 0.5 MG/2.5ML nebule IH SCH ×4 (03:00→20:46)
[2019-07-19] MEDS: ipratropium/albuterol 3ml nebule NEB PRN (03:02)
[2019-07-19] MEDS: ciprofloxacin 0.3% 2.5ml ophthalmic solution EACHEYE SCH ×5 (03:56→20:01)
[2019-07-19 04:26] LABS: BASOPHILS # (AUTO) 0.1 X10'3 (0-0.2); BASOPHILS % (AUTO) 0.8 % (0-1); EOSINOPHILS # (AUTO) 0.4 X10'3 (0-0.9); HEMATOCRIT 37.7 % (42.0-52.0); HEMOGLOBIN 12.7 g/dl (14.0-17.9); LYMPHOCYTES # (AUTO) 1.1 X10'3 (1.1-4.8); LYMPHOCYTES % (AUTO) 12.8 % (21-51); MEAN CORPUSCULAR HEMOGLOBIN 32.4 PG (27.0-31.0); MEAN CORPUSCULAR HGB CONC 33.8 g/dL (33.0-36.5); MEAN CORPUSCULAR VOLUME 95.8 FL (78-98); MONOCYTES # (AUTO) 0.7 X10'3 (0-0.9); MONOCYTES % (AUTO) 8.7 % (2-12); NEUTROPHILS % (AUTO) 72.7 % (42-75); PLATELET COUNT 225 X10'3 (140-440); RED BLOOD COUNT 3.93 X10'6 (4.70-6.10); RED CELL DISTRIBUTION WIDTH 13.7 % (11.5-14.5); WHITE BLOOD COUNT 8.3 X10'3 (4.5-11.0)
[2019-07-19 04:31] LABS: ALBUMIN 1.5 G/DL (3.4-5.0); ANION GAP 9 (8-16); BLOOD UREA NITROGEN 23 MG/DL (7-18); BUN/CREATININE RATIO 21.3 (5.4-32.0); CALCIUM 8.4 MG/DL (8.5-10.1); CHLORIDE 99 MMOL/L (99-107); CREATININE 1.08 MG/DL (0.60-1.10); GLUCOSE 142 MG/DL (70-104); MAGNESIUM 2.1 MG/DL (1.5-2.4); POTASSIUM 3.3 MMOL/L (3.5-5.1); SODIUM 135 MMOL/L (135-145); TOTAL CARBON DIOXIDE 26.6 MMOL/L (24-32); eGFR 66 ML/MIN
[2019-07-19 06:06] LABS: ABG BASE EXCESS 1.7 mmol/L (-2.0-3.0); ABG OXYGEN SATURATION 90.2 % (95-98); ABG PCO2 (T) 39.8 mmHg (35.0-45.0); ABG PH (T) 7.433 (7.350-7.450); ABG PO2 (T) 61.9 mmHg (83-108); ALLEN'S TEST Positive; FLOW 2 L/min; FMetHb 0.3 % (0.3-1.12); FO2Hb 89.9 % (94-100); PATIENT TEMPERATURE 37.2; RESPIRATORY RATE (OBSERVED) 24 b/min; TOTAL HEMOGLOBIN 13.3 G/dl (14.0-17.9)
--- NOTE | 2019-07-19 06:20 | NUR ---
Problems reprioritized. Patient report given, questions answered & plan of care reviewed with Mora FREED.
[2019-07-19 08:00] VITALS: BP 135/55
[2019-07-19] MEDS: nystatin 15 GM ointment TP SCH ×3 (08:00→21:54)
[2019-07-19] MEDS: K and/or MAG REPLACEMENT MC SCH (08:00)
[2019-07-19] MEDS: budesonide 0.5mg/2ml UD nebule IH SCH ×2 (08:50→20:43)
[2019-07-19] MEDS: ipratropium/albuterol 3ml nebule NEB SCH ×3 (08:50→20:43)
[2019-07-19] MEDS: enoxaparin 40mg/0.4ml syringe SQ SCH (09:27)
[2019-07-19] MEDS: furosemide 40mg/4ml inj IV SCH ×2 (09:27→19:59)
[2019-07-19] MEDS: lactobacillus rhamnosus 10,000 MMU CELLS/CAPSULE PO SCH ×2 (09:28→20:01)
[2019-07-19] MEDS: lisinopril 5mg tablet PO SCH (09:28)
[2019-07-19] MEDS: piperacillin/tazo 3.375gm/50ml 50 ML IV SCH ×2 (09:28→20:01)
[2019-07-19] MEDS: verapamil SR 180mg tablet PO SCH (09:28)
[2019-07-19] MEDS: insulin Lispro (HumaLOG) vial - multi-dose SQ SCH ×2 (10:24→20:08)
[2019-07-19 12:00] VITALS: BP 144/65
--- NOTE | 2019-07-19 15:35 | NUR ---
Initial: Pt increased ALOC per RN today doesn't talk much AOx3. Pt hx 6-pack beers daily and no tox screen on admit; RD d/w RN regarding thiamin/folic/MVI per MD approval given recent ALOC increase per MD note. Pt has BLE cellulitis w/ +2 edema and small open area noted to posterior sacrum. PO 100% first meal and immediate decrease to 0% PO past 5 days. LBM 07/18. Given severe weakness, edema, and low PO hx pt qualifies for severe malnutrition; MD notified. Ensure pudding TIDWM added for additional protein/kcal needs given low PO; IF PO improved will need to change to diabetic ONS. Not appropriate for malnutrition/protein eds at this time. Will continue to monitor. Rec: 1. continue carb controlled/mechanical soft diet per MD 2. ensure pudding TIDWM 3. thiamin/folic/MVI for wound and possible etoh per MD approval 4. weekly wts 5. routine bowel care Addendum: 07/19/19 at [address] Amended: Links added.
[2019-07-19] MEDS: albuterol 2.5 MG/3 ML nebule NEB PRN (17:43)
[2019-07-19] MEDS ORDERED: piperacillin/tazo 3.375gm/50ml 50 ML IV SCH ×2 (19:22→20:00)
[2019-07-19 19:30] VITALS: BP 137/55
[2019-07-19] MEDS: methylPREDNISolone sod succ/PF 40mg inj. IV SCH (19:59)
[2019-07-19] MEDS: potassium Cl 20 mEq SR tablet PO PRN (19:59)
[2019-07-19] MEDS: tamsulosin 0.4mg capsule PO SCH (21:50)
[2019-07-19] MEDS: insulin glargine (Lantus) pen - multi-dose SQ SCH (21:58)
[2019-07-19 23:41] VITALS: BP 143/62
[2019-07-20] MEDS: potassium Cl 20 mEq SR tablet PO PRN (00:29)
[2019-07-20] MEDS: ciprofloxacin 0.3% 2.5ml ophthalmic solution EACHEYE SCH ×7 (00:30→23:59)
[2019-07-20] MEDS: ipratropium/albuterol 3ml nebule NEB PRN (02:48)
[2019-07-20] MEDS: ipratropium 0.5 MG/2.5ML nebule IH SCH ×4 (02:49→21:00)
[2019-07-20] MEDS ORDERED: VANCOMYCIN LEVEL IV ONE (03:30)
[2019-07-20 04:33] LABS: VANCOMYCIN,TROUGH 16.9 UG/ML (6.0-14.0)
[2019-07-20 04:42] LABS: POTASSIUM 4.6 MMOL/L (3.5-5.1)
[2019-07-20] MEDS: piperacillin/tazo 3.375gm/50ml 50 ML IV SCH ×3 (04:42→20:36)
[2019-07-20 08:00] VITALS: BP 144/63
[2019-07-20] MEDS: nystatin 15 GM ointment TP SCH ×3 (08:00→20:55)
[2019-07-20] MEDS: K and/or MAG REPLACEMENT MC SCH (08:00)
[2019-07-20] MEDS: furosemide 40mg/4ml inj IV SCH ×2 (08:00→20:35)
[2019-07-20] MEDS: ipratropium/albuterol 3ml nebule NEB SCH ×3 (08:08→20:45)
[2019-07-20] MEDS: budesonide 0.5mg/2ml UD nebule IH SCH ×2 (08:08→20:45)
[2019-07-20] MEDS: methylPREDNISolone sod succ/PF 40mg inj. IV SCH ×2 (10:03→20:35)
[2019-07-20] MEDS: enoxaparin 40mg/0.4ml syringe SQ SCH (10:04)
[2019-07-20] MEDS: lactobacillus rhamnosus 10,000 MMU CELLS/CAPSULE PO SCH ×2 (10:04→20:35)
[2019-07-20] MEDS: verapamil SR 180mg tablet PO SCH (10:04)
[2019-07-20] MEDS: lisinopril 5mg tablet PO SCH (10:04)
[2019-07-20] MEDS: insulin Lispro (HumaLOG) vial - multi-dose SQ SCH ×4 (10:11→21:03)
[2019-07-20 11:00] VITALS: BP 143/68
[2019-07-20 18:00] VITALS: BP 140/57
--- NOTE | 2019-07-20 18:15 | NUR ---
Patient in room [facility]. I have received report from LOURDES Velazco and had the opportunity to ask questions and assume patient care.
[2019-07-20] MEDS: tamsulosin 0.4mg capsule PO SCH (20:35)
[2019-07-20] MEDS: insulin glargine (Lantus) pen - multi-dose SQ SCH (21:05)
[2019-07-20] MEDS: albuterol 2.5 MG/3 ML nebule NEB PRN (22:59)
[2019-07-21 00:06] VITALS: BP 160/65
[2019-07-21] MEDS: ipratropium 0.5 MG/2.5ML nebule IH SCH (02:44)
[2019-07-21] MEDS: ciprofloxacin 0.3% 2.5ml ophthalmic solution EACHEYE SCH ×3 (03:23→12:23)
[2019-07-21] MEDS: piperacillin/tazo 3.375gm/50ml 50 ML IV SCH (05:11)
--- NOTE | 2019-07-21 06:08 | NUR ---
Problems reprioritized. Patient report given, questions answered & plan of care reviewed with LOURDES Miranda.
--- NOTE | 2019-07-21 06:30 | NUR ---
Patient in room [facility]. I have received report from LOURDES Plaza and had the opportunity to ask questions and assume patient care.
[2019-07-21] MEDS: K and/or MAG REPLACEMENT MC SCH (07:00)
[2019-07-21 07:06] VITALS: BP 154/78
[2019-07-21] MEDS: budesonide 0.5mg/2ml UD nebule IH SCH (08:02)
[2019-07-21] MEDS: ipratropium/albuterol 3ml nebule NEB SCH (08:02)
[2019-07-21] MEDS: verapamil SR 180mg tablet PO SCH (08:22)
[2019-07-21] MEDS: furosemide 40mg/4ml inj IV SCH (08:22)
[2019-07-21] MEDS: lisinopril 5mg tablet PO SCH (08:22)
[2019-07-21] MEDS: lactobacillus rhamnosus 10,000 MMU CELLS/CAPSULE PO SCH (08:22)
[2019-07-21] MEDS: methylPREDNISolone sod succ/PF 40mg inj. IV SCH (08:22)
[2019-07-21] MEDS: enoxaparin 40mg/0.4ml syringe SQ SCH (08:23)
[2019-07-21] MEDS: insulin Lispro (HumaLOG) vial - multi-dose SQ SCH ×2 (08:40→13:13)
[2019-07-21] MEDS: nystatin 15 GM ointment TP SCH ×2 (08:40→12:23)
[2019-07-21 11:00] VITALS: BP 162/67
[2019-07-21] MEDS ORDERED: FURO-150 PO (12:09)
[2019-07-21] MEDS ORDERED: LACT1CAP26 PO (12:09)
[2019-07-21] MEDS ORDERED: LISI-642 PO (12:09)
[2019-07-21] MEDS ORDERED: tamsulosin capsule PO (12:09)
[2019-07-21] MEDS ORDERED: NYST15OI14 TP (12:09)
[2019-07-21] MEDS ORDERED: ENOX40DI11 SQ (12:09)
[2019-07-21] MEDS ORDERED: PRED20TA PO ×2 (12:09→12:10)
[2019-07-21] MEDS ORDERED: PRED10TA23 PO (12:10)
[2019-07-21] MEDS ORDERED: PIPE3.376 IV (12:43)
--- NOTE | 2019-07-21 14:43 | NUR ---
Patient discharged to [facility] and taken from unit via gurney with x2 [employer] staff. Patient in no apparent distress at time of discharge. Patient PIV and Ext PIV left in due to the need for IV abx. Patient also D/C'd with patel cath in place. Report called to [facility] to Kerri.
[2019-07-21] MEDS ORDERED: piperacillin/tazo 4.5gm/100ml 100 ML IV SCH (16:00)
== END 2019-07-21 14:30 | DRG 602 ==
LOC: ER 21:08 → SUR 3N 07-14 02:58 → CMPBEDREQ 07-14 03:48
PROVIDERS: ADMIT Hospitalist; ATTEND Internal Medicine
DX: L03.115 Cellulitis of right lower limb (principal); E43 Unspecified severe protein-calorie malnutrition; N39.0 Urinary tract infection, site not specified; J44.1 Chronic obstructive pulmonary disease with (acute) exacerbation; L03.113 Cellulitis of right upper limb; L03.116 Cellulitis of left lower limb; I10 Essential (primary) hypertension; J44.9 Chronic obstructive pulmonary disease, unspecified; E11.9 Type 2 diabetes mellitus without complications; E87.6 Hypokalemia; G47.30 Sleep apnea, unspecified; I25.10 Atherosclerotic heart disease of native coronary artery without angina pectoris; I25.2 Old myocardial infarction; K59.00 Constipation, unspecified; N40.0 Benign prostatic hyperplasia without lower urinary tract symptoms; Z66 Do not resuscitate; Z79.899 Other long term (current) drug therapy; Z80.9 Family history of malignant neoplasm, unspecified; Z82.3 Family history of stroke; Z82.5 Family history of asthma and other chronic lower respiratory diseases; Z83.3 Family history of diabetes mellitus; Z86.73 Personal history of transient ischemic attack (TIA), and cerebral infarction without residual deficits; Z95.1 Presence of aortocoronary bypass graft; Z88.1 Allergy status to other antibiotic agents; Z88.8 Allergy status to other drugs, medicaments and biological substances; Z28.21 Immunization not carried out because of patient refusal; Z68.36 Body mass index [BMI] 36.0-36.9, adult; R09.02 Hypoxemia
CPT/HCPCS: 36415; 36600; 70450; 71045; 71046; 73100; 73120; 74018; 76937; 80048; 80053; 80202; 81001; 81003; 82803; 82948; 83036; 83605; 83735; 84132; 84145; 85018; 85025; 87040; 87077; 87081; 87088; 87186; 93308; 93970; 93971; 94640; 94760; 97110; 97116; 97162; 97530; 99285; G0378; J0360; J0696; J1650; J1815; J1940; J1956; J2543; J2920; J3370; J7626

== ENCOUNTER 2019-08-11 10:35 | Inpatient (IN) | payer MEDICARE, BC ==
[~2019-08-11] VITALS: Ht 188 cm; Wt 88.9 kg
[~2019-08-11 10:35] MED LIST changes: -ACET-1995 PO; -ALBU18HF2 INH; -BUDE10.23 IH; +CETI10TA18 PO; +ENOX40DI11 SQ; -FAMO-128 PO; -FORM12CA IH; +FURO-150 PO; +GLIP5TAB13 PO; -GLYB2.5T59 PO; +LACT1CAP26 PO; +LISI-642 PO; -LISI40TA4 PO; -MOME0.246 INH; +NYST15OI14 TP; -OSTEO BI-FLEX1 EACH PO; -PRED10TA23 PO; +PRED20TA PO; -PRED50TA PO; -THI100T PO; +tamsulosin capsule PO
--- NOTE | 2019-08-11 10:59 | NUR ---
PT WAS BRIGHT IN TO ER FROM [facility] R/T INCREASE IN WEAKNESS [facility] TEMP IS 98.6 HE IS AWAKE RESPONDS TO NAME BUT ONLY KNOW HE IS IN [facility] BUT DOESNT KNOW THE DATE OR WHAT IS GOING ON IT IS REPORTED THAT HE WAS IN THE ER A FEW DAYS PRIER FOR UTI AND IS ON ANTIBIOTCS. HE COMPLAINS OF PAIN EVERYTIME HE IS TOUCHED OR MOVED BUT CAN NOT GIVEN IT A PAIN RATING. R ARM IS WARM TO THE TOUCH BUT THE REST OF HIS BODY IS NORMAL TEMP
[2019-08-11 11:18] LABS: BASOPHILS # (AUTO) 0.1 X10'3 (0-0.2); EOSINOPHILS # (AUTO) 0.2 X10'3 (0-0.9); EOSINOPHILS % (AUTO) 2.3 % (0-6); HEMATOCRIT 37.2 % (42.0-52.0); HEMOGLOBIN 12.8 g/dl (14.0-17.9); LYMPHOCYTES # (AUTO) 1.5 X10'3 (1.1-4.8); LYMPHOCYTES % (AUTO) 15.3 % (21-51); MEAN CORPUSCULAR HEMOGLOBIN 31.6 PG (27.0-31.0); MEAN CORPUSCULAR HGB CONC 34.3 g/dL (33.0-36.5); MEAN CORPUSCULAR VOLUME 92.1 FL (78-98); MEAN PLATELET VOLUME 8.7 FL (7.4-10.4); MONOCYTES # (AUTO) 0.9 X10'3 (0-0.9); MONOCYTES % (AUTO) 8.9 % (2-12); NEUTROPHILS # (AUTO) 7.2 X10'3 (1.8-7.7); NEUTROPHILS % (AUTO) 72.5 % (42-75); PLATELET COUNT 247 X10'3 (140-440); RED BLOOD COUNT 4.04 X10'6 (4.70-6.10); RED CELL DISTRIBUTION WIDTH 14.3 % (11.5-14.5)
[2019-08-11 11:28] LABS: PARTIAL THROMBOPLASTIN TIME 35 SECONDS (22-32)
--- NOTE | 2019-08-11 11:32 | NUR ---
streight cath for ua removed about 750 ml of dark clowdy urine pt tolerated well
[2019-08-11] MEDS ORDERED: normal saline 1000ML IV soln IVB ONE ×2 (11:40→12:15)
[2019-08-11] MEDS ORDERED: cefepime 1GM/NS ADD-VANTAGE 100 ML IV ONE (11:40)
[2019-08-11 11:43] LABS: ALANINE AMINOTRANSFERASE 28 U/L (12-78); ALBUMIN 1.8 G/DL (3.4-5.0); ALBUMIN/GLOBULIN RATIO 0.3 (1.1-1.5); ALKALINE PHOSPHATASE 85 IU/L (46-116); ANION GAP 8 (8-16); ASPARTATE AMINO TRANSFERASE 38 U/L (10-37); BLOOD UREA NITROGEN 20 MG/DL (7-18); BUN/CREATININE RATIO 17.1 (5.4-32.0); CALCIUM 9.5 MG/DL (8.5-10.1); CHLORIDE 101 MMOL/L (99-107); CREATININE 1.17 MG/DL (0.60-1.10); GLUCOSE 184 MG/DL (70-104); POTASSIUM 4.2 MMOL/L (3.5-5.1); SODIUM 136 MMOL/L (135-145); TOTAL CARBON DIOXIDE 27.1 MMOL/L (24-32); TOTAL PROTEIN 7.8 G/DL (6.4-8.2); eGFR 61 ML/MIN
[2019-08-11 11:44] LABS: CLARITY,URINE TURBID (Clear); COLOR,URINE YELLOW (Yellow); GLUCOSE, URINE NEGATIVE (Neg); KETONES,URINE NEGATIVE (Neg); LEUKOCYTE ESTERASE ,URINE LARGE (Neg); NITRITES, URINE POSITIVE (Neg); OCCULT BLOOD,URINE MODERATE (Neg); PROTEIN,URINE 100 mg/dl (Neg); UROBILINOGEN,URINE 0.2 E.U/dL (0.2-1.0)
--- NOTE | 2019-08-11 11:46 | NUR ---
LAB IN TO DRAW 2ND BLOOD CULTURE AND AMMONIA.
[2019-08-11 11:47] LABS: UA COLLECTION TYPE STRAIGHT CATH
[2019-08-11] MEDS ORDERED: CIPR-259 PO (11:52)
[2019-08-11] MEDS ORDERED: ALBU8.5H8 (11:52)
[2019-08-11 11:56] LABS: SQUAMOUS EPITHELIAL CELL,UR FEW /LPF (FEW)
[2019-08-11 11:57] LABS: MUCUS STRANDS NONE SEEN /LPF (Neg); TRANSITIONAL EPI CELLS,URINE FEW /HPF; WBC,URINE TNTC /HPF (0-4)
[2019-08-11] MEDS ORDERED: LOPE-190 PO (11:57)
[2019-08-11] MEDS ORDERED: MAGN400C PO (11:57)
[2019-08-11] MEDS ORDERED: ACET-2119 PO (11:57)
[2019-08-11 12:02] LABS: BACTERIA,URINE 1+ /HPF (Neg)
[2019-08-11 12:03] LABS: AMORPHOUS URATES 4+
[2019-08-11] MEDS ORDERED: FLO0.4C PO (12:03)
[2019-08-11] MEDS ORDERED: LISI-600 PO (12:03)
[2019-08-11] MEDS ORDERED: FURO-149 PO (12:03)
[2019-08-11] MEDS ORDERED: LACT1CAP65 PO (12:03)
--- NOTE | 2019-08-11 12:20 | NUR ---
US IN WITH PT
--- NOTE | 2019-08-11 12:43 | NUR ---
PATIENT TO CT SCAN ON [facility]
[2019-08-11] MEDS ORDERED: bisacodyl 10mg suppository rectal RC PRN (13:05)
[2019-08-11] MEDS ORDERED: acetaminophen 325mg tablet PO PRN ×2 (13:05)
[2019-08-11] MEDS ORDERED: diphenhydrAMINE 25mg capsule PO PRN (13:05)
[2019-08-11] MEDS ORDERED: magnesium 2GM in 50ml NS 50 ML IV PRN (13:05)
[2019-08-11] MEDS ORDERED: potassium Cl 20 mEq SR tablet PO PRN ×2 (13:05)
[2019-08-11] MEDS ORDERED: ondansetron/PF 4mg/2ml inj IV PRN (13:05)
[2019-08-11] MEDS ORDERED: metoclopramide 5 mg/ml inj IV PRN (13:05)
[2019-08-11] MEDS ORDERED: magnesium hydroxide 30ml (MOM) UD suspension PO PRN (13:05)
[2019-08-11] MEDS ORDERED: mag hydrox/Alum hydrox/simeth 30ml oral suspension PO PRN (13:05)
[2019-08-11] MEDS ORDERED: diphenhydrAMINE 50 mg/ml inj IV PRN (13:05)
[2019-08-11] MEDS ORDERED: potassium CL 10mEq/100ml bag 100 ML IV PRN ×2 (13:05)
[2019-08-11] MEDS ORDERED: magnesium Cl slow-release 64mg tablet PO PRN (13:05)
[2019-08-11] MEDS ORDERED: magnesium 4gm in 100ml NS 100 ML IV PRN (13:05)
[2019-08-11] MEDS ORDERED: acetaminophen 650mg rectal suppository RC PRN (13:05)
[2019-08-11] MEDS ORDERED: THIA100T73 PO (13:17)
--- NOTE | 2019-08-11 13:32 | NUR ---
REMOVE PTS DIAPER AND REPLACE WITH DRYFLOW. CLEAN OFF END OF PENIS.
[2019-08-11] MEDS: normal saline 1000ml 1,000 ML IV SCH ×2 (13:34→23:36)
--- NOTE | 2019-08-11 14:56 | NUR ---
DR HUERTA IN ROOM TO SALVADOR PT.
[2019-08-11] MEDS ORDERED: ipratropium/albuterol 3ml nebule NEB PRN (15:20)
[2019-08-11] MEDS ORDERED: cefepime 1GM in D5W 50mL 50 ML IV SCH (16:00)
--- NOTE | 2019-08-11 16:00 | NUR ---
RECEIVED PATIENT TO ROOM 356A VIA GURNEY ACCOMPANIED BY X1 STAFF. PATIENT ALERT AND ORIENTED TO NAME AND BIRTHDAY ONLY. PATIENT IS PLEASANTLY CONFUSED. ORIENTED PATIENT TO ROOM AND CALL LIGHT. CALL LIGHT PLACED WITHIN PATIENT'S REACH. BED IS LOW AND LOCKED. VSS.
[2019-08-11 16:14] VITALS: BP 130/58
[2019-08-11] MEDS: cefepime 1GM/NS ADD-VANTAGE 100 ML IV SCH ×2 (16:25→23:36)
--- NOTE | 2019-08-11 18:32 | NUR ---
Problems reprioritized. Patient report given, questions answered & plan of care reviewed with LOURDES NORTON.
[2019-08-11] MEDS: ipratropium/albuterol 3ml nebule NEB SCH ×2 (19:20→23:00)
[2019-08-11] MEDS: magnesium oxide 400mg tablet PO SCH (19:55)
[2019-08-11 20:00] VITALS: BP 133/48
[2019-08-11] MEDS ORDERED: dextrose ORAL solution 15 GM/59 ML bottle PO PRN ×2 (21:40)
[2019-08-11] MEDS ORDERED: dextrose 50%-water 50ml dispensing syringe IV PRN ×2 (21:40)
[2019-08-11] MEDS ORDERED: glucagon, human recombinant 1mg kit SUBCUT PRN (21:40)
[2019-08-12] VITALS: BP 144/59
[2019-08-12 05:24] LABS: BASOPHILS % (AUTO) 0.4 % (0-1); EOSINOPHILS # (AUTO) 0.5 X10'3 (0-0.9); EOSINOPHILS % (AUTO) 7.3 % (0-6); HEMOGLOBIN 11.9 g/dl (14.0-17.9); LYMPHOCYTES # (AUTO) 1.3 X10'3 (1.1-4.8); LYMPHOCYTES % (AUTO) 17.9 % (21-51); MEAN CORPUSCULAR HEMOGLOBIN 31.4 PG (27.0-31.0); MEAN CORPUSCULAR VOLUME 92.3 FL (78-98); MEAN PLATELET VOLUME 8.8 FL (7.4-10.4); MONOCYTES # (AUTO) 0.5 X10'3 (0-0.9); MONOCYTES % (AUTO) 7.1 % (2-12); NEUTROPHILS % (AUTO) 67.3 % (42-75); PLATELET COUNT 224 X10'3 (140-440); RED BLOOD COUNT 3.79 X10'6 (4.70-6.10); RED CELL DISTRIBUTION WIDTH 14.5 % (11.5-14.5); WHITE BLOOD COUNT 7.4 X10'3 (4.5-11.0)
[2019-08-12 05:48] LABS: ALANINE AMINOTRANSFERASE 29 U/L (12-78); ALBUMIN 1.5 G/DL (3.4-5.0); ALBUMIN/GLOBULIN RATIO 0.3 (1.1-1.5); ALKALINE PHOSPHATASE 79 IU/L (46-116); ANION GAP 10 (8-16); ASPARTATE AMINO TRANSFERASE 48 U/L (10-37); BILIRUBIN,TOTAL 0.5 MG/DL (0.1-1.0); BLOOD UREA NITROGEN 17 MG/DL (7-18); BUN/CREATININE RATIO 17.2 (5.4-32.0); CALCIUM 8.9 MG/DL (8.5-10.1); CHLORIDE 105 MMOL/L (99-107); CREATININE 0.99 MG/DL (0.60-1.10); GLUCOSE 163 MG/DL (70-104); MAGNESIUM 1.7 MG/DL (1.5-2.4); PHOSPHORUS 3.3 MG/DL (2.3-4.5); SODIUM 139 MMOL/L (135-145); TOTAL CARBON DIOXIDE 23.6 MMOL/L (24-32); TOTAL PROTEIN 7.3 G/DL (6.4-8.2); eGFR 73 ML/MIN
--- NOTE | 2019-08-12 06:40 | NUR ---
Problems reprioritized. Patient report given, questions answered & plan of care reviewed with LOURDES Kirk.
[2019-08-12 07:19] VITALS: BP 170/90
[2019-08-12] MEDS: cefepime 1GM/NS ADD-VANTAGE 100 ML IV SCH ×3 (07:58→23:58)
[2019-08-12] MEDS: enoxaparin 40mg/0.4ml syringe SUBCUT SCH (07:59)
[2019-08-12] MEDS ORDERED: MILK THISTLE SEED EXTRACT 200 MG PO SCH (08:00)
[2019-08-12] MEDS: tamsulosin 0.4mg capsule PO SCH (08:00)
[2019-08-12] MEDS: thiamine 100mg tablet PO SCH (08:00)
[2019-08-12] MEDS ORDERED: ipratropium 0.5 MG/2.5ML nebule IH SCH (08:00)
[2019-08-12] MEDS: multivitamins, therapeutics tablet PO SCH (08:00)
[2019-08-12] MEDS: verapamil SR 180mg tablet PO SCH (08:01)
[2019-08-12] MEDS: lactobacillus rhamnosus 10,000 MMU CELLS/CAPSULE PO SCH (08:01)
[2019-08-12] MEDS: magnesium oxide 400mg tablet PO SCH ×2 (08:02→20:50)
[2019-08-12] MEDS: furosemide 40mg tablet PO SCH (08:02)
[2019-08-12] MEDS: K and/or MAG REPLACEMENT MC SCH (08:02)
[2019-08-12] MEDS: HYDROcodone/acetaminophen 10/325mg tab PO PRN ×2 (08:24→14:58)
[2019-08-12] MEDS: ipratropium/albuterol 3ml nebule NEB SCH ×5 (08:34→23:18)
[2019-08-12] MEDS: normal saline 1000ml 1,000 ML IV SCH ×2 (09:05→20:50)
[2019-08-12] MEDS ORDERED: FLU VACC QS2019-20 36MOS UP/PF 60 MCG/0.5 ML SYRINGE IMVAC ONE ×2 (10:00→16:00)
--- NOTE | 2019-08-12 10:36 | NUR ---
DM consult: Pt with A1c 7.2 admit with possible recurrence of UTI, encephalopathy, and acute renal failure. Pt currently A/O x 1 and confused, DM education not appropriate at this time. Will continue to follow and provide DM education prior to discharge once alert and oriented. Addendum: 08/12/19 at [address] Amended: Links added.
[2019-08-12] MEDS: lisinopril 20mg tablet PO SCH (11:18)
[2019-08-12 11:19] VITALS: BP 134/57
[2019-08-12] MEDS: insulin Lispro (HumaLOG) vial - multi-dose SQ SCH (13:31)
--- NOTE | 2019-08-12 15:07 | NUR ---
PT FOUND TO BE DISTENDED DURING REPOSITION. BLADDER SCAN SHOWED OVER 700 ML IN BLADDER. MD MADE AWARE, N/O FOR F/C FOR RETENTION. PARKER PLACED. 1200 ML OUT, CLOUDY YELLOW URINE. PT. C/O PAIN. HYDROCODONE ADMINISTERED PER ORDER. PT. COUGHING A SMALL AMOUNT AFTER DRINKING 3 SIPS OF WATER. MD MADE AWARE. ORDERS TO CONT. TO MONITOR SWALLOWING ABILITY.
--- NOTE | 2019-08-12 18:34 | NUR ---
CHECKED ON PT. PT ALIVE AND BREATHING. GAVE REPORT TO CIERRA FREED.
[2019-08-12 20:00] VITALS: BP 110/54
[2019-08-12] MEDS: HYDROcodone/acetaminophen 5mg/325mg tablet PO PRN (20:50)
[2019-08-12] MEDS: insulin glargine (Lantus) pen - multi-dose SQ SCH (20:59)
[2019-08-13] VITALS: BP_SYST 111; BP_SYST 130; BP_DIAS 50; BP_DIAS 60
[2019-08-13] MEDS: normal saline 1000ml 1,000 ML IV SCH ×2 (03:41→15:22)
--- NOTE | 2019-08-13 06:33 | NUR ---
Problems reprioritized. Patient report given, questions answered & plan of care reviewed with LOURDES Kirk.
[2019-08-13] MEDS: ipratropium/albuterol 3ml nebule NEB SCH ×5 (07:09→23:28)
[2019-08-13 07:12] VITALS: BP 128/58
[2019-08-13] MEDS: enoxaparin 40mg/0.4ml syringe SUBCUT SCH (08:00)
[2019-08-13] MEDS: lisinopril 20mg tablet PO SCH (08:00)
[2019-08-13] MEDS: thiamine 100mg tablet PO SCH (08:00)
[2019-08-13] MEDS: verapamil SR 180mg tablet PO SCH (08:00)
[2019-08-13] MEDS: furosemide 40mg tablet PO SCH (08:00)
[2019-08-13] MEDS: lactobacillus rhamnosus 10,000 MMU CELLS/CAPSULE PO SCH (08:00)
[2019-08-13] MEDS: magnesium oxide 400mg tablet PO SCH ×2 (08:00→20:30)
[2019-08-13] MEDS: cefepime 1GM/NS ADD-VANTAGE 100 ML IV SCH ×3 (08:00→23:13)
[2019-08-13] MEDS: tamsulosin 0.4mg capsule PO SCH (08:00)
[2019-08-13] MEDS: multivitamins, therapeutics tablet PO SCH (08:00)
[2019-08-13] MEDS: K and/or MAG REPLACEMENT MC SCH (08:00)
[2019-08-13 08:18] LABS: BASOPHILS % (AUTO) 0.7 % (0-1); EOSINOPHILS # (AUTO) 0.6 X10'3 (0-0.9); EOSINOPHILS % (AUTO) 11.5 % (0-6); HEMATOCRIT 34.9 % (42.0-52.0); HEMOGLOBIN 11.5 g/dl (14.0-17.9); LYMPHOCYTES # (AUTO) 1.4 X10'3 (1.1-4.8); LYMPHOCYTES % (AUTO) 26.5 % (21-51); MEAN CORPUSCULAR HEMOGLOBIN 30.9 PG (27.0-31.0); MEAN CORPUSCULAR HGB CONC 32.9 g/dL (33.0-36.5); MEAN CORPUSCULAR VOLUME 93.7 FL (78-98); MEAN PLATELET VOLUME 8.7 FL (7.4-10.4); MONOCYTES # (AUTO) 0.4 X10'3 (0-0.9); NEUTROPHILS # (AUTO) 2.8 X10'3 (1.8-7.7); NEUTROPHILS % (AUTO) 53.3 % (42-75); PLATELET COUNT 227 X10'3 (140-440); RED BLOOD COUNT 3.72 X10'6 (4.70-6.10); RED CELL DISTRIBUTION WIDTH 14.3 % (11.5-14.5); WHITE BLOOD COUNT 5.2 X10'3 (4.5-11.0)
[2019-08-13 08:35] LABS: ALANINE AMINOTRANSFERASE 32 U/L (12-78); ALBUMIN 1.5 G/DL (3.4-5.0); ALBUMIN/GLOBULIN RATIO 0.3 (1.1-1.5); ALKALINE PHOSPHATASE 73 IU/L (46-116); ANION GAP 7 (8-16); ASPARTATE AMINO TRANSFERASE 37 U/L (10-37); BILIRUBIN,TOTAL 0.3 MG/DL (0.1-1.0); BLOOD UREA NITROGEN 17 MG/DL (7-18); BUN/CREATININE RATIO 19.3 (5.4-32.0); CALCIUM 8.9 MG/DL (8.5-10.1); CHLORIDE 111 MMOL/L (99-107); CREATININE 0.88 MG/DL (0.60-1.10); GLUCOSE 124 MG/DL (70-104); MAGNESIUM 1.7 MG/DL (1.5-2.4); PHOSPHORUS 3.4 MG/DL (2.3-4.5); POTASSIUM 4.2 MMOL/L (3.5-5.1); SODIUM 145 MMOL/L (135-145); TOTAL CARBON DIOXIDE 26.7 MMOL/L (24-32); eGFR 84 ML/MIN
--- NOTE | 2019-08-13 09:28 | NUR ---
Pt. spit out half of AM PO medications. Unknown what medications were spit out as they were partly dissolved. Will cont. to monitor pt. for ASE of missed medications and notify MD during rounds.
[2019-08-13] MEDS ORDERED: FLU VACC QS2019-20 36MOS UP/PF 60 MCG/0.5 ML SYRINGE IMVAC ONE (10:00)
--- NOTE | 2019-08-13 10:58 | NUR ---
MD aware pt. spit medications out this. AM. No new orders at this time.
[2019-08-13 12:00] VITALS: BP 120/51
--- NOTE | 2019-08-13 12:47 | NUR ---
Nutrition consult: "Pt with low albumin would like vanilla protein shakes". Pt currently on CHO controlled diet documented with 0-25% PO intake with refusals not meeting nutrient needs. Pt remains confused and A/O x1 per physical assessment. Per RN notes pt spitting out meds and coughing after just a few sips of water. RD consulted for BSS. 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 Pt would benefit from additional protein/Ensure Enlive TID given increased protein needs with poor PO intake. Will f/u once BSS has been performed to best provide most appropriate ONS. Addendum: 08/13/19 at [address] Amended: Links added.
[2019-08-13] MEDS: insulin Lispro (HumaLOG) vial - multi-dose SQ SCH (14:38)
--- NOTE | 2019-08-13 14:51 | NUR ---
PRESSURE ULCER EDUCATION: DEFINITION: A pressure ulcer is an area of skin that breaks down when you stay in one position too long. The constant pressure against the skin reduces the blood flow to that area and the affected tissue dies. CAUSES: "Being bedridden or in a wheelchair "Fragile skin "Having a chronic condition, such as diabetes or vascular disease "Inability to move certain parts of your body without assistance "Older age "Incontinence of urine or stool SYMPTOMS: "A reddened area that DOES NOT turn white when pressed on - this can be the beginning of a pressure ulcer "A blister, deep sore or a crater - these can be advanced pressure ulcers FIRST AID: "Relieve the pressure on this area "Keep the area clean and dry "Call your primary doctor if you see any of the above symptoms "DO NOT massage the area "DO NOT use a donut shaped or ring shaped pillow- these actually interfere with the blood flow and cause complications PREVENTION: "Check for pressure ulcers everyday "Change position at least every two hours to relieve pressure "Use items that help relieve pressure- pillows, sheepskin, foam padding, and powders. "Keep skin clean and dry "Eat healthy well balanced meals "Exercise daily IF YOU SEE ANY OF THESE SYMPTOMS WHILE IN THE HOSPITAL - TELL YOUR NURSE IMMEDIATELY. IF YOU SEE ANY OF THESE SYMPTOMS WHILE AT HOME OR HAVE ANY QUESTIONS OR CONCERNS ABOUT PRESSURE ULCERS - CALL YOUR PRIMARY DOCTOR IMMEDIATELY. Addendum: 08/13/19 at 1451 by Debby Rodriguez RN Amended: Links added.
[2019-08-13] MEDS: HYDROcodone/acetaminophen 5mg/325mg tablet PO PRN (17:03)
[2019-08-13 18:00] VITALS: BP 138/87
--- NOTE | 2019-08-13 18:30 | NUR ---
Patient in room [facility]. I have received report from LOURDES Kirk and had the opportunity to ask questions and assume patient care.
--- NOTE | 2019-08-13 18:51 | NUR ---
Gave report to Doc FREED.
--- NOTE | 2019-08-13 19:12 | NUR ---
pt refusing to eat dinner
[2019-08-13] MEDS: emollient combination-Eucerin 250 ML LOTION TP SCH (20:32)
[2019-08-13] MEDS: nystatin 15 GM powder TP SCH (20:32)
[2019-08-13] MEDS: insulin glargine (Lantus) pen - multi-dose SQ SCH (22:35)
[2019-08-14] VITALS: BP 145/72
[2019-08-14] MEDS: normal saline 1000ml 1,000 ML IV SCH ×2 (04:25→19:40)
[2019-08-14 06:01] LABS: BASOPHILS % (AUTO) 0.4 % (0-1); EOSINOPHILS # (AUTO) 0.6 X10'3 (0-0.9); EOSINOPHILS % (AUTO) 10.3 % (0-6); HEMATOCRIT 32.7 % (42.0-52.0); LYMPHOCYTES # (AUTO) 1.6 X10'3 (1.1-4.8); LYMPHOCYTES % (AUTO) 27.7 % (21-51); MEAN CORPUSCULAR HEMOGLOBIN 31.4 PG (27.0-31.0); MEAN CORPUSCULAR HGB CONC 33.7 g/dL (33.0-36.5); MEAN CORPUSCULAR VOLUME 93.4 FL (78-98); MEAN PLATELET VOLUME 8.7 FL (7.4-10.4); MONOCYTES # (AUTO) 0.4 X10'3 (0-0.9); MONOCYTES % (AUTO) 7.3 % (2-12); NEUTROPHILS # (AUTO) 3.1 X10'3 (1.8-7.7); NEUTROPHILS % (AUTO) 54.3 % (42-75); PLATELET COUNT 238 X10'3 (140-440); RED CELL DISTRIBUTION WIDTH 14.5 % (11.5-14.5); WHITE BLOOD COUNT 5.7 X10'3 (4.5-11.0)
[2019-08-14 06:38] LABS: ALANINE AMINOTRANSFERASE 32 U/L (12-78); ALBUMIN 1.5 G/DL (3.4-5.0); ALBUMIN/GLOBULIN RATIO 0.3 (1.1-1.5); ALKALINE PHOSPHATASE 80 IU/L (46-116); ANION GAP 9 (8-16); ASPARTATE AMINO TRANSFERASE 46 U/L (10-37); BILIRUBIN,TOTAL 0.4 MG/DL (0.1-1.0); BLOOD UREA NITROGEN 14 MG/DL (7-18); BUN/CREATININE RATIO 16.7 (5.4-32.0); CALCIUM 9.4 MG/DL (8.5-10.1); CHLORIDE 109 MMOL/L (99-107); CREATININE 0.84 MG/DL (0.60-1.10); GLUCOSE 119 MG/DL (70-104); MAGNESIUM 1.7 MG/DL (1.5-2.4); PHOSPHORUS 2.7 MG/DL (2.3-4.5); POTASSIUM 3.5 MMOL/L (3.5-5.1); SODIUM 145 MMOL/L (135-145); TOTAL CARBON DIOXIDE 26.7 MMOL/L (24-32); eGFR 89 ML/MIN
--- NOTE | 2019-08-14 06:42 | NUR ---
Problems reprioritized. Patient report given, questions answered & plan of care reviewed with LOURDES Velazco.
[2019-08-14 07:00] VITALS: BP 157/77
[2019-08-14] MEDS: ipratropium/albuterol 3ml nebule NEB SCH ×4 (07:24→19:25)
[2019-08-14] MEDS: nystatin 15 GM powder TP SCH ×2 (08:00→20:00)
[2019-08-14] MEDS: K and/or MAG REPLACEMENT MC SCH (08:00)
[2019-08-14] MEDS: emollient combination-Eucerin 250 ML LOTION TP SCH ×2 (08:00→20:00)
[2019-08-14] MEDS: thiamine 100mg tablet PO SCH (08:00)
[2019-08-14] MEDS: magnesium oxide 400mg tablet PO SCH ×2 (09:17→20:00)
[2019-08-14] MEDS: verapamil SR 180mg tablet PO SCH (09:17)
[2019-08-14] MEDS: lactobacillus rhamnosus 10,000 MMU CELLS/CAPSULE PO SCH (09:17)
[2019-08-14] MEDS: lisinopril 20mg tablet PO SCH (09:18)
[2019-08-14] MEDS: tamsulosin 0.4mg capsule PO SCH (09:18)
[2019-08-14] MEDS: lactulose 20gm/30ml cup PO SCH ×2 (09:18→20:00)
[2019-08-14] MEDS: furosemide 40mg tablet PO SCH (09:18)
[2019-08-14] MEDS: multivitamins, therapeutics tablet PO SCH (09:18)
[2019-08-14] MEDS: enoxaparin 40mg/0.4ml syringe SUBCUT SCH (09:19)
[2019-08-14] MEDS: cefepime 1GM/NS ADD-VANTAGE 100 ML IV SCH ×3 (09:19→23:14)
[2019-08-14] MEDS: insulin Lispro (HumaLOG) vial - multi-dose SQ SCH ×2 (09:58→19:07)
[2019-08-14 11:00] VITALS: BP 159/60
[2019-08-14 11:55] LABS: ABG BASE EXCESS -0.5 mmol/L (-2.0-3.0); ABG HCO3 22.7 mmol/L (22.0-26.0); ABG OXYGEN SATURATION 91.7 % (95-98); ABG PCO2 (T) 32.7 mmHg (35.0-45.0); ABG PH (T) 7.459 (7.350-7.450); ABG PO2 (T) 60.5 mmHg (83-108); FMetHb 0.2 % (0.3-1.12); FO2Hb 91.5 % (94-100); TOTAL HEMOGLOBIN 12.3 G/dl (14.0-17.9)
--- NOTE | 2019-08-14 15:16 | NUR ---
Initial: Pt currently on CHO controlled diet documented with 0-25% PO intake with refusals not meeting nutrient needs. Pt remains confused and A/O x1 per physical assessment. Per RN notes pt was spitting out meds and coughing after just a few sips of water. A BSS was done this morning by ST who reports patient has difficulty chewing and recommends mechanical soft diet with ground meats and thin liquids, patient currently with mechanical soft diet order with grind all comment. Patient admitted with UTI, encephalopathy, possible underlying dementia, CAD, and stable COPD. 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 Pt would benefit from additional protein/Ensure Enlive TID given increased protein needs with poor PO intake, notified MD. Noted that patient does not have routine bowel care and documented with constipation, recommend routine bowel care, notified MD. Recommend: 1. continue carb controlled, mechanical soft diet 2. Grind all foods per ST 3. Ensure Enlive with meals in view of poor PO intake 4. weight per rx 5. Routine bowel care, pt is constipated Addendum: 08/14/19 at [address] Amended: Links added.
[2019-08-14 18:00] VITALS: BP 136/77
[2019-08-14] MEDS ORDERED: lactose-reduced food (Ensure Enlive) - 237ml bottle PO SCH (18:00)
--- NOTE | 2019-08-14 18:46 | NUR ---
Patient in room [facility]. I have received report from LOURDES Velazco and had the opportunity to ask questions and assume patient care.
--- NOTE | 2019-08-14 20:08 | NUR ---
notified Dr. Hankins of 100.8F axillary temperature. orders received to restart Normal saline at 75ml/hr
[2019-08-14 21:26] VITALS: BP 118/62
[2019-08-14] MEDS: insulin glargine (Lantus) pen - multi-dose SQ SCH (22:12)
--- NOTE | 2019-08-14 22:24 | NUR ---
pt lethargic, unable to take meds at this time PO. when asking pt if he is feeling tired he nods his head. will attempt to give meds later. will continue to monitor
[2019-08-15] VITALS: BP 124/62
[2019-08-15] MEDS: ipratropium/albuterol 3ml nebule NEB SCH ×6 (00:08→22:14)
[2019-08-15 06:38] LABS: ALANINE AMINOTRANSFERASE 41 U/L (12-78); ALBUMIN 1.5 G/DL (3.4-5.0); ALBUMIN/GLOBULIN RATIO 0.3 (1.1-1.5); ALKALINE PHOSPHATASE 89 IU/L (46-116); ANION GAP 9 (8-16); ASPARTATE AMINO TRANSFERASE 72 U/L (10-37); BILIRUBIN,TOTAL 0.7 MG/DL (0.1-1.0); BLOOD UREA NITROGEN 14 MG/DL (7-18); BUN/CREATININE RATIO 16.1 (5.4-32.0); CALCIUM 9.1 MG/DL (8.5-10.1); CHLORIDE 109 MMOL/L (99-107); CREATININE 0.87 MG/DL (0.60-1.10); GLUCOSE 138 MG/DL (70-104); MAGNESIUM 1.6 MG/DL (1.5-2.4); PHOSPHORUS 3.1 MG/DL (2.3-4.5); POTASSIUM 3.1 MMOL/L (3.5-5.1); SODIUM 145 MMOL/L (135-145); TOTAL CARBON DIOXIDE 26.6 MMOL/L (24-32); TOTAL PROTEIN 7.3 G/DL (6.4-8.2); eGFR 85 ML/MIN
--- NOTE | 2019-08-15 06:40 | NUR ---
Problems reprioritized. Patient report given, questions answered & plan of care reviewed with LOURDES Olvera.
[2019-08-15 06:46] LABS: BASOPHILS % (AUTO) 0.5 % (0-1); EOSINOPHILS # (AUTO) 0.4 X10'3 (0-0.9); EOSINOPHILS % (AUTO) 5.2 % (0-6); HEMOGLOBIN 11.8 g/dl (14.0-17.9); LYMPHOCYTES # (AUTO) 1.7 X10'3 (1.1-4.8); LYMPHOCYTES % (AUTO) 22.4 % (21-51); MEAN CORPUSCULAR HEMOGLOBIN 31.3 PG (27.0-31.0); MEAN CORPUSCULAR HGB CONC 33.7 g/dL (33.0-36.5); MEAN CORPUSCULAR VOLUME 93.1 FL (78-98); MEAN PLATELET VOLUME 9.1 FL (7.4-10.4); MONOCYTES # (AUTO) 0.6 X10'3 (0-0.9); MONOCYTES % (AUTO) 7.7 % (2-12); NEUTROPHILS # (AUTO) 4.8 X10'3 (1.8-7.7); NEUTROPHILS % (AUTO) 64.2 % (42-75); PLATELET COUNT 271 X10'3 (140-440); RED BLOOD COUNT 3.76 X10'6 (4.70-6.10); RED CELL DISTRIBUTION WIDTH 14.5 % (11.5-14.5); WHITE BLOOD COUNT 7.4 X10'3 (4.5-11.0)
[2019-08-15] MEDS: lactobacillus rhamnosus 10,000 MMU CELLS/CAPSULE PO SCH (07:50)
[2019-08-15] MEDS: furosemide 40mg tablet PO SCH (07:51)
[2019-08-15] MEDS: verapamil SR 180mg tablet PO SCH (07:52)
[2019-08-15] MEDS: lisinopril 20mg tablet PO SCH (07:59)
[2019-08-15 08:00] VITALS: BP 127/66
[2019-08-15] MEDS: multivitamins, therapeutics tablet PO SCH (08:00)
[2019-08-15] MEDS: thiamine 100mg tablet PO SCH (08:00)
[2019-08-15] MEDS: magnesium oxide 400mg tablet PO SCH ×2 (08:00→20:00)
[2019-08-15] MEDS: tamsulosin 0.4mg capsule PO SCH (08:00)
[2019-08-15] MEDS: K and/or MAG REPLACEMENT MC SCH (08:00)
[2019-08-15] MEDS: lactulose 20gm/30ml cup PO SCH ×3 (08:01→21:35)
[2019-08-15] MEDS: enoxaparin 40mg/0.4ml syringe SUBCUT SCH (08:02)
[2019-08-15] MEDS: cefepime 1GM/NS ADD-VANTAGE 100 ML IV SCH ×3 (08:07→23:36)
[2019-08-15] MEDS: normal saline 1000ml 1,000 ML IV SCH ×2 (09:00→22:20)
[2019-08-15] MEDS ORDERED: potassium Cl 20 mEq SR tablet PO PRN ×2 (10:20)
[2019-08-15] MEDS ORDERED: magnesium 4gm in 100ml NS 100 ML IV PRN (10:20)
[2019-08-15] MEDS ORDERED: magnesium Cl slow-release 64mg tablet PO PRN (10:20)
[2019-08-15 11:30] VITALS: BP 134/59
--- NOTE | 2019-08-15 12:10 | NUR ---
insulin not given for breakfast. patient did not eat much, just applesauce with pills. will reevaluate for lunch.
[2019-08-15] MEDS: potassium CL 10mEq/100ml bag 100 ML IV PRN ×4 (12:16→17:21)
[2019-08-15] MEDS: emollient combination-Eucerin 250 ML LOTION TP SCH ×2 (12:21→20:00)
[2019-08-15] MEDS: nystatin 15 GM powder TP SCH ×2 (12:24→20:00)
[2019-08-15] MEDS: insulin Lispro (HumaLOG) vial - multi-dose SQ SCH (18:39)
--- NOTE | 2019-08-15 18:40 | NUR ---
Problems reprioritized. Patient report given, questions answered & plan of care reviewed with Doc Solano.
[2019-08-15 19:00] VITALS: BP 117/51
[2019-08-15] MEDS: insulin glargine (Lantus) pen - multi-dose SQ SCH (20:54)
[2019-08-16] VITALS: BP 138/63
[2019-08-16 05:54] LABS: ALANINE AMINOTRANSFERASE 42 U/L (12-78); ALBUMIN 1.5 G/DL (3.4-5.0); ALBUMIN/GLOBULIN RATIO 0.2 (1.1-1.5); ALKALINE PHOSPHATASE 90 IU/L (46-116); ANION GAP 9 (8-16); ASPARTATE AMINO TRANSFERASE 67 U/L (10-37); BILIRUBIN,TOTAL 0.6 MG/DL (0.1-1.0); BLOOD UREA NITROGEN 15 MG/DL (7-18); BUN/CREATININE RATIO 15.5 (5.4-32.0); CALCIUM 9.2 MG/DL (8.5-10.1); CHLORIDE 111 MMOL/L (99-107); CREATININE 0.97 MG/DL (0.60-1.10); GLUCOSE 148 MG/DL (70-104); MAGNESIUM 1.7 MG/DL (1.5-2.4); PHOSPHORUS 2.9 MG/DL (2.3-4.5); POTASSIUM 3.2 MMOL/L (3.5-5.1); SODIUM 147 MMOL/L (135-145); TOTAL CARBON DIOXIDE 27.4 MMOL/L (24-32); TOTAL PROTEIN 7.6 G/DL (6.4-8.2); eGFR 75 ML/MIN
[2019-08-16 05:59] LABS: BASOPHILS % (AUTO) 0.5 % (0-1); EOSINOPHILS # (AUTO) 0.5 X10'3 (0-0.9); EOSINOPHILS % (AUTO) 6.5 % (0-6); HEMATOCRIT 34.9 % (42.0-52.0); HEMOGLOBIN 11.6 g/dl (14.0-17.9); MEAN CORPUSCULAR HEMOGLOBIN 31.1 PG (27.0-31.0); MEAN CORPUSCULAR HGB CONC 33.4 g/dL (33.0-36.5); MEAN CORPUSCULAR VOLUME 93.1 FL (78-98); MEAN PLATELET VOLUME 9.1 FL (7.4-10.4); MONOCYTES # (AUTO) 0.5 X10'3 (0-0.9); MONOCYTES % (AUTO) 6.3 % (2-12); NEUTROPHILS # (AUTO) 5.1 X10'3 (1.8-7.7); NEUTROPHILS % (AUTO) 62.7 % (42-75); PLATELET COUNT 309 X10'3 (140-440); RED BLOOD COUNT 3.75 X10'6 (4.70-6.10); RED CELL DISTRIBUTION WIDTH 14.9 % (11.5-14.5); WHITE BLOOD COUNT 8.1 X10'3 (4.5-11.0)
--- NOTE | 2019-08-16 06:10 | NUR ---
Patient in room [facility]. I have received report from LOURDES Talley and had the opportunity to ask questions and assume patient care.
[2019-08-16] MEDS: ipratropium/albuterol 3ml nebule NEB SCH ×4 (06:58→18:51)
[2019-08-16] MEDS: K and/or MAG REPLACEMENT MC SCH (08:00)
[2019-08-16 08:10] VITALS: BP 144/74
[2019-08-16] MEDS: furosemide 40mg tablet PO SCH (08:30)
[2019-08-16] MEDS: multivitamins, therapeutics tablet PO SCH (08:30)
[2019-08-16] MEDS: enoxaparin 40mg/0.4ml syringe SUBCUT SCH (08:30)
[2019-08-16] MEDS: lactobacillus rhamnosus 10,000 MMU CELLS/CAPSULE PO SCH (08:30)
[2019-08-16] MEDS: magnesium oxide 400mg tablet PO SCH ×2 (08:31→20:35)
[2019-08-16] MEDS: verapamil SR 180mg tablet PO SCH (08:31)
[2019-08-16] MEDS: lisinopril 20mg tablet PO SCH (08:31)
[2019-08-16] MEDS: cefepime 1GM/NS ADD-VANTAGE 100 ML IV SCH ×3 (08:32→23:26)
[2019-08-16] MEDS: nystatin 15 GM powder TP SCH ×2 (08:32→20:39)
[2019-08-16] MEDS: thiamine 100mg tablet PO SCH (08:32)
[2019-08-16] MEDS: tamsulosin 0.4mg capsule PO SCH (08:32)
[2019-08-16] MEDS: emollient combination-Eucerin 250 ML LOTION TP SCH ×2 (08:35→20:38)
[2019-08-16] MEDS: lactulose 20gm/30ml cup PO SCH ×3 (08:36→20:38)
[2019-08-16] MEDS ORDERED: magnesium citrate 296ml oral solution PO ONE (09:15)
[2019-08-16 11:00] VITALS: BP 132/63
[2019-08-16] MEDS: potassium CL 10mEq/100ml bag 100 ML IV PRN ×4 (12:09→19:06)
[2019-08-16] MEDS: normal saline 1000ml 1,000 ML IV SCH (12:10)
--- NOTE | 2019-08-16 18:10 | NUR ---
Problems reprioritized. Patient report given, questions answered & plan of care reviewed with Karly RN & Denia RN.
--- NOTE | 2019-08-16 18:25 | NUR ---
Patient in room [facility]. I have received report from Cornelia FREED and had the opportunity to ask questions and assume patient care.
[2019-08-16 19:00] VITALS: BP 124/58
--- NOTE | 2019-08-16 19:39 | NUR ---
Patients daughter called in to check on how her father was doing. Informed her of what dependency case manager had charted, and that we would call her either way (after Antonella agrees or declines). Number is [phone]. Addendum: 08/16/19 at 2252 by Karin Villanueva RN Jaylon from [facility] is apparently coming in here tomorrow to assess patient for the placement.
[2019-08-16] MEDS: HYDROcodone/acetaminophen 10/325mg tab PO PRN (20:35)
[2019-08-16] MEDS: insulin glargine (Lantus) pen - multi-dose SQ SCH (21:59)
[2019-08-17] VITALS: BP 113/54
[2019-08-17] MEDS: normal saline 1000ml 1,000 ML IV SCH ×3 (01:00→20:19)
[2019-08-17] MEDS: HYDROcodone/acetaminophen 5mg/325mg tablet PO PRN (03:39)
--- NOTE | 2019-08-17 06:30 | NUR ---
Patient in room [facility]. I have received report from KIARA FREED and had the opportunity to ask questions and assume patient care.
--- NOTE | 2019-08-17 06:43 | NUR ---
Problems reprioritized. Patient report given, questions answered & plan of care reviewed with Fransisco RN.
[2019-08-17 06:56] LABS: MAGNESIUM 1.8 MG/DL (1.5-2.4)
[2019-08-17 07:06] LABS: POTASSIUM 3.7 MMOL/L (3.5-5.1)
[2019-08-17] MEDS: ipratropium/albuterol 3ml nebule NEB SCH ×4 (07:16→20:02)
[2019-08-17] MEDS: K and/or MAG REPLACEMENT MC SCH (08:00)
[2019-08-17] MEDS: multivitamins, therapeutics tablet PO SCH (08:00)
[2019-08-17 08:33] VITALS: BP 127/71
[2019-08-17] MEDS: furosemide 40mg tablet PO SCH (10:53)
[2019-08-17] MEDS: thiamine 100mg tablet PO SCH (10:54)
[2019-08-17] MEDS: tamsulosin 0.4mg capsule PO SCH (10:54)
[2019-08-17] MEDS: verapamil SR 180mg tablet PO SCH (10:55)
[2019-08-17] MEDS: lactobacillus rhamnosus 10,000 MMU CELLS/CAPSULE PO SCH (10:55)
[2019-08-17] MEDS: lactulose 20gm/30ml cup PO SCH ×3 (10:55→20:23)
[2019-08-17] MEDS: magnesium oxide 400mg tablet PO SCH ×2 (10:55→20:23)
[2019-08-17] MEDS: enoxaparin 40mg/0.4ml syringe SUBCUT SCH (10:56)
[2019-08-17] MEDS: lisinopril 20mg tablet PO SCH (10:59)
[2019-08-17 11:00] VITALS: BP 123/76
[2019-08-17] MEDS: emollient combination-Eucerin 250 ML LOTION TP SCH ×2 (11:00→20:23)
[2019-08-17] MEDS: nystatin 15 GM powder TP SCH ×2 (11:01→20:23)
--- NOTE | 2019-08-17 12:04 | NUR ---
Patient in room [facility]. I have received report from Berta, director of emergency nursing and had the opportunity to ask questions and assume patient care.
--- NOTE | 2019-08-17 16:57 | NUR ---
Reassessment: Pt s/p f/u BSS today with ST recs to continue mechanical soft grind meat diet with thin liquids d/t pt with difficulty chewing r/t missing teeth. Pt continues with poor PO intake documented at 0-25% not meeting nutrient needs. ONS still unverified by MD. Pt documented as A/O x 1 and confused. Likely poor PO intake is secondary to current mentation. 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 Per MD notes pt likely to d/c soon if remains stable. Discussed PO intake with RN who states pt is getting assistance with meals and possibly to d/c tomorrow. LBM 08/17. Will continue to follow closely. Recommend: 1. continue carb controlled, mechanical soft diet 2. Grind all foods per ST 3. Ensure Enlive with meals in view of poor PO intake 4. weight per rx 5. Routine bowel care Addendum: 08/17/19 at [address] Amended: Links added.
--- NOTE | 2019-08-17 17:00 | NUR ---
reviewed student documentation
--- NOTE | 2019-08-17 17:06 | NUR ---
reviewed student documentation
--- NOTE | 2019-08-17 18:30 | NUR ---
Patient in room [facility]. I have received report from Fransisco FREED and had the opportunity to ask questions and assume patient care.
--- NOTE | 2019-08-17 18:30 | NUR ---
Problems reprioritized. Patient report given, questions answered & plan of care reviewed with KIARA FREED.
[2019-08-17 19:00] VITALS: BP 86/58
[2019-08-17 19:30] VITALS: BP 109/71
[2019-08-17] MEDS: HYDROcodone/acetaminophen 10/325mg tab PO PRN (20:25)
[2019-08-17] MEDS: insulin glargine (Lantus) pen - multi-dose SQ SCH (22:33)
[2019-08-18] VITALS: BP 125/57
[2019-08-18] MEDS: ipratropium/albuterol 3ml nebule NEB SCH ×4 (00:13→14:09)
[2019-08-18] MEDS: HYDROcodone/acetaminophen 5mg/325mg tablet PO PRN (04:44)
--- NOTE | 2019-08-18 06:27 | NUR ---
Patient now has a rectal tube in place as having loose runny brown stool to help protect from any further skin breakdown to buttocks. Patient received wound care to both wounds during shift and new optifoams in place.
--- NOTE | 2019-08-18 06:29 | NUR ---
Reported off to day nurse Amanda FREED.
[2019-08-18 07:00] VITALS: BP 137/56
[2019-08-18] MEDS: K and/or MAG REPLACEMENT MC SCH (08:00)
[2019-08-18] MEDS: enoxaparin 40mg/0.4ml syringe SUBCUT SCH (08:48)
[2019-08-18] MEDS: multivitamins, therapeutics tablet PO SCH (08:49)
[2019-08-18] MEDS: lactobacillus rhamnosus 10,000 MMU CELLS/CAPSULE PO SCH (08:49)
[2019-08-18] MEDS: thiamine 100mg tablet PO SCH (08:49)
[2019-08-18] MEDS: tamsulosin 0.4mg capsule PO SCH (08:49)
[2019-08-18] MEDS: verapamil SR 180mg tablet PO SCH (08:49)
[2019-08-18] MEDS: furosemide 40mg tablet PO SCH (08:49)
[2019-08-18] MEDS: magnesium oxide 400mg tablet PO SCH (08:49)
[2019-08-18] MEDS: HYDROcodone/acetaminophen 10/325mg tab PO PRN (08:50)
[2019-08-18] MEDS: lisinopril 20mg tablet PO SCH (08:50)
[2019-08-18] MEDS: nystatin 15 GM powder TP SCH (08:50)
[2019-08-18] MEDS: emollient combination-Eucerin 250 ML LOTION TP SCH (08:50)
[2019-08-18] MEDS: lactulose 20gm/30ml cup PO SCH (08:50)
[2019-08-18 11:58] VITALS: BP 129/52
--- NOTE | 2019-08-18 14:09 | NUR ---
called report to Aislinn at [facility].
[2019-08-19 06:11] LABS: ALLEN'S TEST Positive
[2019-08-19] MEDS ORDERED: FLU VACC QS2019-20 36MOS UP/PF 60 MCG/0.5 ML SYRINGE IMVAC ONE (08:00)
== END 2019-08-18 15:19 | DRG 71 ==
LOC: ER 10:36 → ED HOLD 13:24 → SUR 3N 15:43
PROVIDERS: ADMIT Family Medicine; ATTEND Internal Medicine
DX: G93.41 Metabolic encephalopathy (principal); N17.9 Acute kidney failure, unspecified; N39.0 Urinary tract infection, site not specified; I82.611 Acute embolism and thrombosis of superficial veins of right upper extremity; L03.113 Cellulitis of right upper limb; D64.9 Anemia, unspecified; E11.9 Type 2 diabetes mellitus without complications; K59.00 Constipation, unspecified; I10 Essential (primary) hypertension; I25.10 Atherosclerotic heart disease of native coronary artery without angina pectoris; Z96.611 Presence of right artificial shoulder joint; J44.9 Chronic obstructive pulmonary disease, unspecified; K80.20 Calculus of gallbladder without cholecystitis without obstruction; B96.5 Pseudomonas (aeruginosa) (mallei) (pseudomallei) as the cause of diseases classified elsewhere; N40.0 Benign prostatic hyperplasia without lower urinary tract symptoms; Z66 Do not resuscitate; I25.2 Old myocardial infarction; Z79.899 Other long term (current) drug therapy; Z91.041 Radiographic dye allergy status; Z82.3 Family history of stroke; Z82.49 Family history of ischemic heart disease and other diseases of the circulatory system
CPT/HCPCS: 36415; 36600; 70450; 71045; 76700; 80053; 81001; 82140; 82803; 82948; 83036; 83605; 83735; 83880; 84100; 84132; 84145; 84484; 85018; 85025; 85610; 85730; 87040; 87081; 87088; 92508; 92616; 93005; 93971; 94640; 94760; 96365; 97110; 97161; 97530; 99285; G0378; J0692; J1650; J1815; J3480; J7030; Q2037